=== PATIENT | male | born 1955 | race Caucasian/White ===

== ENCOUNTER 2020-05-28 10:55 | Outpatient (CLI) | payer BC, SELFPAY ==
--- NOTE | 2020-05-28 11:15 | CT_ITS ---
WS: [id number] CT scan of the neck. Additional two-dimensional coronal and sagittal reconstruction was performed. 05/28/2020 Clinical Data: LOCALIZED SWELLING MASS LUMP NECK Comparison: CT neck, 08/10/2010. DLP: 2332.[address] scans at [facility] use at least one of these dose optimization techniques: automat ed exposure control; mA and/or kV adjustment per patient size (includes targeted exams where dose is matched to clinical indication); or iterative reconstruction. Findings: There is an enlarged lymph node in the right parotid gland measuring 1.8 cm with a low density center . The left parotid gland is normal. The other salivary glands show no abnormalities. No lymphadenopat hy is present. There is no prevertebral soft tissue swelling. The larynx is symmetric. The thyroid gl and shows normal enhancement. The floor of the mouth and parapharyngeal spaces are normal. The oral c avity is unremarkable. The carotid arteries bifurcate normally. The vertebral arteries are normal. The cervical spine shows mild osteoarthritis from C5 through C7. The lung apices show no abnormalities. The portions of the in tracranial circulation which are seen demonstrate no abnormalities. No erosion of the skull or skull base is seen. CT/CT neck w con* [id number] Impression: 1. Enlarged lymph node in right parotid gland with low density center measuring 1.8 cm. 2. No other neck abnormalities are seen.
[2020-05-28] MEDS: iohexol 300 mg/mL 100 mL Btl IV (11:56)
[2020-06-01 15:42] LABS: Blood Urea Nitrogen 10 mg/dL (8-23); Glomerular Filtration Rate 97.6 mL/min (90-130)
== END 2020-05-28 10:56 | disposition home or self-care (01) ==
LOC: RADWPI 11:07
PROVIDERS: PCP Nurse Practitioner Family; Visit Provider Specialist
DX: R22.1 Localized swelling, mass and lump, neck (principal)
CPT/HCPCS: 70491; 82565; 84520; Q9967

== ENCOUNTER 2020-06-04 11:32 | Outpatient (CLI) | payer BC, SELFPAY ==
[2020-06-04 12:08] LABS: Basophils # 0.1 10^3/uL (0.0-0.1); Basophils % 0.8 %; Eosinophils # 0.2 10^3/uL (0.0-0.8); Hematocrit 45.4 % (42.0-52.0); Hemoglobin 15.2 g/dL (11.7-16.6); Lymphocytes # 2.4 10^3/uL (0.8-4.8); Lymphocytes % 31.4 %; Mean Corpuscular HGB Conc 33.5 g/dL (30.0-36.0); Mean Corpuscular Hemoglobin 31.9 pg (28.0-34.0); Mean Corpuscular Volume 95.4 fL (80-94); Mean Platelet Volume 9.5 fL (7.4-10.4); Monocytes # 0.6 10^3/uL (0.2-0.9); Monocytes % 8.2 %; Neutrophils # 4.34 10^3/uL (1.8-7.7); Neutrophils % 57.3 %; Nucleated Red Blood Cells % 0 %; Platelet Count 250 10^3/cmm (130-400); Red Blood Count 4.76 10^6/uL (4.1-5.3); Red Cell Distribution Width 13.3 % (12.1-15.1); White Blood Count 7.6 10^3/uL (4.0-10.0)
--- NOTE | 2020-06-04 12:31 | ECG_ITS ---
[facility] Test Date: 2020-06-04 Pat Name: Salvador Becker Department: Room: Gender: Male Laundry Washer: : 1955 Requested By: Azar Dudley Order Number: [id number] Soraida MD: KALIA TEJADA Measurements Intervals [place] Rate: 63 P: 57 [place]: 188 QRS: 72 QRSD: 100 T: 69 QT: 378 QTc: 387 Interpretive Statements SINUS RHYTHM Compared to ECG 07/25/2017 18:27:51 Sinus bradycardia no longer present Electronically Signed On 06-04-2020 20:18:40 CDT by KALIA TEJADA [id number]
[2020-06-04 12:32] LABS: Anion Gap 11.7 (5-19); Blood Urea Nitrogen 14 mg/dL (8-23); Calcium 9.2 mg/dL (8.5-10.5); Carbon Dioxide 27 mmol/L (22-29); Chloride 102 mmol/L (98-107); Glomerular Filtration Rate 113.9 mL/min (90-130); Glucose 87 mg/dL (65-115); Osmolality Calculated 282 mOsm/kg (285-295); Potassium 4.7 mmol/L (3.5-5.1); Sodium 136 mmol/L (136-145)
== END 2020-06-04 11:33 | disposition home or self-care (01) ==
LOC: RT 11:36
PROVIDERS: PCP Nurse Practitioner Family; Visit Provider Specialist
DX: R22.1 Localized swelling, mass and lump, neck (principal)
CPT/HCPCS: 36415; 80048; 85025; 93005

== ENCOUNTER → 2020-06-09 14:03 | Outpatient (BNVA) | payer BC, SELFPAY | PROVIDERS: PCP Nurse Practitioner Family; Visit Provider Specialist | DX: Z01.812 Encounter for preprocedural laboratory examination (principal); Z20.822 Contact with and (suspected) exposure to COVID-19 | CPT/HCPCS: 87635 ==

== ENCOUNTER 2020-06-15 15:09 | Observation (INO) | payer BC, SELFPAY ==
[2020-06-14 15:46] VITALS: BMI 30.1
[2020-06-15] VITALS (13 sets, daily range): BP systolic 106–171; BP diastolic 62–109; PULSE 72–79; RESP 13–18; TEMP 36.4–37.1; O2SAT 92–100
--- NOTE | 2020-06-15 06:28 | ANES.PREANE2 ---
Pre-Anesthetic Assessment Pre-Anesthetic Assessment: Height/Weight: Height 1.78 m Weight 95.254 kg Temp Pulse Resp BP Pulse Ox 98.3 F 72 18 126/75 97 06/15/20 06:10 06/15/20 06:10 06/15/20 06:10 06/15/20 06:10 06/15/20 06:10 Proposed Procedure: Operation Date: 06/15/20 07:00 Proposed Procedures p Right parotidectomy superficial or total, possible right neck dissection & possible L abd fat gaft harvest C07 R59.0 R22.1 [id number](Not Applicable) - Azar Stanley MD Was Beta Hannah taken within 24 hours: Yes Was Clonidine taken within 24 hours: N/A Last intake: Intake Last Liquid Date 06/14/20 Last Solid Date 06/14/20 Social: Social History: No alcohol and No tobacco Exam: Pre-Anes Outpt Exam: alert, oriented x 3, clear to auscultation bilaterally and regular rate & rhythm Airway: Submandibular: WNL Cervical ROM: WNL MP: 3 Dentition: Full Additional comments: h/o head and neck radiation CV/HEM: CV/HEM: CAD (Stent) and HTN GI: GI: GERD Metabolic: Metabolic: Morbid obesity Anesthetic Plan: ASA status: 3 Anesthesia: General Risk of > 500 ml blood loss (7ml/kg in children): No PFSH Anesthesia PFSH: Medical History (Updated 04/23/19 @ 18:05 by Robert Garber MD) CAD (coronary artery disease) GERD (gastroesophageal reflux disease) HTN (hypertension) Family History Sister Cancer Cervical CA Grandfather Cancer Mother Hypertension Social History Smoking and tobacco status: current every day smoker History of recent travel: No Data Anesthesia Cardiac Studies: No Data to Display
[2020-06-15] MEDS: sodium chloride 0.9% 1,000 ML 30 ML IV (06:31)
--- NOTE | 2020-06-15 06:42 | W.PM.OPSUD ---
Surgery/Procedure H&P Update DATE OF PROCEDURE: June 15, 2020 DATE H&P PERFORMED: 06/04/20 H&P UPDATE INFORMATION: I have reviewed H&P completed within last 30 days, I have examined patient prior to procedure and No changes to prior documentation PREOP DIAGNOSIS: Right parotid mass with suspicious FNA biopsy PRIMARY INDICATION FOR PROCEDURE: Right parotid mass with suspicious FNA biopsy PLANNED PROCEDURE: Operation Date: 06/15/20 07:00 Proposed Procedures p Right parotidectomy superficial or total, possible right neck dissection & possible L abd fat gaft harvest C07 R59.0 R22.1 [id number](Not Applicable) - Azar Satnley MD
[2020-06-15] MEDS: ceFAZolin 1,000 mg SDV 1000 MG IRRIGATION (08:14)
[2020-06-15] MEDS: triamcinolone 40 mg/mL SDV IM (08:16)
--- NOTE | 2020-06-15 08:26 | SUR.OPER ---
0805 pt family (Rossi) notified of surgery progress
[2020-06-15] MEDS: EPINEPHrine 1 mg/mL INJ XX (08:46)
[2020-06-15] MEDS: fluorescein 1 mg Strip XX (08:46)
--- NOTE | 2020-06-15 09:53 | SUR.OPER ---
0953 PT FAMILY (TAE) NOTIFIED OF SURGERY PROGRESS
[2020-06-15] MEDS: EPINEPHrine 1 mg/mL INJ 2 MG XX (10:47)
[2020-06-15] MEDS: thrombin 5,000 unit SDV 5000 UNIT XX (12:21)
--- NOTE | 2020-06-15 13:31 | P.OP_ITS ---
Operative Report Date of procedure: June 15, 2020 Pre-op Diagnosis: Right parotid mass with suspicious FNA biopsy Post-op diagnosis: other Post-op Diagnosis: Right tail of parotid mass Right cervical adenopathy - levels I,II,III Post-op Findings: Right tail of parotid mass Multiple right levels I, II, and III hard, pathologic appearing lymph nodes The following nerves were exposed, identified, and preserved intact on the right face and neck: CN VII, X, XI, XII, lingual nerve Procedure Done: Right near total parotidectomy Right Supraomohyoid neck dissection Implants: None Specimens removed/disposition: Right parotid/right parotid mass Right Neck contents: leves I, IIa, IIb, and III Pathology: See above Surgeon: Azar Stanley Circuit Breaker Supervisor: Randal Mccurdy Circuit Breaker Supervisor: Franca Denney Anesthesia: General Estimated blood loss (mL): 50 IV fluids (mL): 1,700 Urine output (mL): 450 Complications: None Findings: Right tail of parotid mass Pathologic adenopathy of the right neck, levels I, II, and III The following nerves were identified and preserved: CN VII, CN X, CN XI, CN XII, and the right lingual nerve The right greater auricular nerve was sacrificed Condition: stable Disposition: floor Brief History: 64 yo wm with a h/o a right tail of parotid mass and right cervical adenopathy with a suspicious FNA biopsy who desires surgical therapy. Procedure: The patient was identified in the preoperative holding area and was taken to the operating room where he was placed on the operating table in the supine position. Anesthesia was obtained with general endotracheal anesthesia and the table was then turned 180 degrees. The Nirvana nerve monitoring system was placed in the patient's right face and the patient was then prepped and draped in the usual sterile fashion. An extended and modified Adrian incision was marked on the patient's right face and the incision was injected with local anesthesia. Patient was then observed for 10 minutes. The incision was then made with a 15 blade and was carried down through the subcutaneous tissues with sharp scissors and Metzenbaum scissors. An anteriorly based flap was developed over the right parotid and into the right neck exposing the right parotid to the operating surgeon. At this point the dissection proceeded along a broad front along the right sternocleidomastoid muscle. The dissection was developed medially to the anterior border of the right sternocleidomastoid muscle and immediately significant cervical adenopathy was encountered. The dissection then proceeded into the immediate preauricular area and the dissection proceeded between the tragal cartilage and the posterior border of the parotid gland. At this point a dissection proceeded at the right neck and a supraomohyoid neck dissection was performed by dissecting posteriorly along the anterior border the sternocleidomastoid muscle until the floor of the neck was identified. The dissection then turned anteriorly along the cervical nerve rootlets and was brought up over the internal jugular vein on the right. The right internal jugular vein and carotid artery were then skeletonized up into the upper portion of the right neck above the omohyoid muscle. At this point, the spinal accessory nerve was identified and dissected free from the surrounding tissues and levels 2A and 2B were harvested along with a neck specimen. The right cervical adenopathy was dissected free from the surrounding tissues and the internal jugular vein and right carotid were found to be immediately underlying the adenopathy. The vagus nerve was identified and preserved in the carotid sheath. The right cervical adenopathy was hard and there was significant scarification in the right neck. At this point the dissection proceeded deep into the immediate preauricular tissues until the facial nerve was identified both visually and electrically at its exit point from the stylomastoid foramen in the medial right tympanomastoid suture. The dissection then turned forward and the dissection proceeded to the pes anserinus. The branches of the facial nerve were then dissected free and preserved using the Nirvana nerve monitoring hemostat and the Jefferson dissector. As the dissection proceeded the superficial portion of the parotid was removed as was the tail of parotid. In the tail of parotid a mass was encountered which was excised with wide cuff of normal- appearing tissue around it. The branches of the facial nerve were left overlying a small layer of of parotid tissue overlying the masseter muscle but the vast majority the parotid gland was removed. At this point the marginal mandibular nerve was followed out over the submandibular gland on the right and was retracted to safety superiorly. At this point the hypoglossal nerve was identified and preserved and was dissected free from the digastric muscle. The submandibular triangle was then addressed and the submandibular gland was excised with a combination of blunt dissection and bipolar cautery. The hypoglossal nerve, marginal mandibular nerve, and lingual nerves were identified and preserved in place in the submandibular triangle on the right. At this point the wound was irrigated and was inspected for hemostasis which was found to be adequate. The area of the right neckw was dissected free from the right cervical adenopathy between the lateral aspect of the internal jugular vein and the sternocleidomastoid muscle to the floor of the neck as well as the rest of the neck were inspected and found to have no significant bleeding. At this point the wounds were packed with Gelfoam soaked in thrombin and a drain was placed in the patient's right neck. The wound was then closed in layers with interrupted 4-0 Monocryl sutures in the subcu and 5-0 fast-absorbing gut on the skin. At this point the wounds were cleaned and were covered with triple antibiotic ointment and the procedure was terminated. Controlled of the patient was returned to anesthesia where he underwent an uneventful reversal of anesthesia and extubation and was taken to the recovery room in stable condition. There were no operative or anesthetic complications.
--- NOTE | 2020-06-15 13:34 | SUR.PHASEI ---
PT AWAKE ALERT DENIES PAIN AND NAUSEA JOSE RAMON TO RT NECK INCISION SITE COMPRESSED WITH SMALL AMT SANGUINEOUS DRAINAGE NOTED , VSS PT NOW ON RA TRIAL FOWLER TO DD YELLOW URINE TO TUBING AND BAG, STATLOCK TO LT THIGH.
--- NOTE | 2020-06-15 13:42 | SUR.PHASEI ---
PT AWAKES EASILY SATS 99% ON RA PT TAKING OCC ICE CHIPS INCISION TO RT NECK REMAINS WITH OINTMENT ONLY NO BLEEDING NOTED.
--- NOTE | 2020-06-15 14:20 | PC.NURSE ---
1420: Patient to floor with JEANETTE Mckeon from PACU. Bedside report performed. Patient is resting in bed with no c/o pain at this time. Admission assessment and education performed. Patient tolerated procedure well.
--- NOTE | 2020-06-15 14:34 | SUR.PHASEI ---
1355 PTTO FLOOR PER CART AWAKE ALERT PT UP AND WALKED TO BED , HANDOFF AT BEDSIDE TO FLOOR NURSE ANTHONY.
[2020-06-15] MEDS: lactated ringers 1,000 ML 125 ML IV (15:39)
--- NOTE | 2020-06-15 16:14 | PC.NURSE ---
1545: While initiating LR and Cefazolin IV administration, this RN called and informed patient's spouse of patient's location on Med/Surg and provided her the information on current visiting hours [phone] 1 person at a time throughout the day at [facility]. She verbalizes understanding and states she will be here shortly. Patient denies the presence of pain at this time and is resting comfortably.
--- NOTE | 2020-06-15 17:16 | ANE.PACU2 ---
Inpatient post-anesthesia follow up: Airway intact: Yes Vital signs: Temperature 98.7 F Pulse Rate 73 Respiratory Rate 17 Blood Pressure 128/81 Pulse Oximetry 94 Oxygen Delivery Me thod Room Air Oxygen Flow Rate 8 Fraction of Inspir ed Oxygen Hydration adequate: Yes Nausea and vomiting: No Pain level: 2 Mental status: Baseline
--- NOTE | 2020-06-15 17:36 | P.PN_ITS ---
Subjective Subjective: Interval history: 64 yo wm who is nigh of surgery s/p right parotidectomy with right SOHND for right parotid and right neck masses. The patient reports that he is doing well. He has no c/o. Vitals/I&O/Wt Last Vital Signs Temp 98.7 F 06/15/20 15:09 Pulse 73 06/15/20 15:57 Resp 17 06/15/20 15:57 BP 128/81 06/15/20 15:09 Pulse Ox 94 06/15/20 15:57 06/15/20 06/15/20 06/15/20 06:59 14:59 22:59 Intake Total 700 / 700 50 / 750 Output Total 650 / 650 Balance 50 / 50 50 / 100 Weight last 48 hrs Weight 95.254 kg Physical Exam Const: COMMON NORMALS: no acute distress, average body habitus and patient oriented x3 HENMT: COMMON NORMALS: normocephalic, atraumatic, external ears normal and Normal external nose present HEAD & SCALP: normocephalic and atraumatic FACE & SINUS: face symmetric and other (The right facial/neck incision is clean, intact, and without erythema. ) NOSE: Normal external nose present EXTERNAL EAR: Yes external ears normal Eye: COMMON NORMALS: EOMs intact bilaterally and conjunctivae normal CONJUNCTIVA: Yes conjunctivae normal Neck/C-Spine: COMMON NORMALS: no lymphadenopathy and supple OTHER: Right neck incision appears normal without swelling. JOSE RAMON drain is in place. Lymph: LYMPHATIC: no lymphadenopathy noted Resp: COMMON NORMALS: normal respiratory effort and clear to auscultation bilaterally AUSCULTATION: clear to auscultation bilaterally Cardio: COMMON NORMALS: regular rhythm and No murmurs present (Cardio) RHYTHM: regular rhythm GI: COMMON NORMALS: Normal to inspection, nondistended, normoactive bowel sounds present and Soft to palpation PALPATION: Yes Soft to palpation Extremity: COMMON NORMALS: normal to inspection Neuro: COMMON NORMALS: patient oriented x3 and CN's II-XII intact bilaterally CRANIAL NERVES: Yes other (The following director supply chain are normal: VII, X, XI, and XII are normal.) Psych: COMMON NORMALS: mental status grossly normal Urinary Catheter Management^: Velasquez: Cath Placed During This Visit: yes Urinary Catheter Date of Insertion: 06/15/20 Urinary Catheter Time of Insertion: 07:20 A&P Additional A&P Information Impression: 64 yo wm who is night of surgery s/p right parotidectomy with right neck dissection who is doing well. Plan: - Observation as an inpatient - Regular diet - Continue JOSE RAMON closed suction drainage - D/C Velasquez - Resume anticoagulants tomorrow; continue SCD's tonight - Anticipate d/c tomorrow afternoon Attestations Medical Necessity Statement*: The patient requires overnight hospitalization for observation of his airway Coding Level of Care Code Acute Retail Sales Representative for Mariela Nolan
--- NOTE | 2020-06-15 18:59 | PC.NURSE ---
1850: This RN removed the roman catheter per protocol and emptied 550 mL of clear, yellow urine. Patient tolerated procedure well with no complications. I provided education on s/s of complications and instructed him to inform nursing if he had not voided by 2229. He verbalizes understanding. He requested jello and coffee per his advancing diet as tolerated order. I provided him jello, coffee, and water and instructed him to call if he has any increased nausea/vomiting or any increased pain. He denies pain at this time.
[2020-06-15] MEDS: ticagrelor 90 mg Tablet PO (21:45)
[2020-06-16] VITALS (7 sets, daily range): BP systolic 92–103; BP diastolic 53–60; PULSE 67–78; RESP 16–18; TEMP 36.6–36.9; O2SAT 94–96
[2020-06-16] MEDS: lactated ringers 1,000 ML 125 ML IV ×2 (00:26→08:35)
--- NOTE | 2020-06-16 05:20 | PC.NURSE ---
DIET Patient has tolerated advancement of diet well. Patient went from ice chips and clear liquids to chicken noodle soup and crackers with no complaints of nausea or vomiting.
--- NOTE | 2020-06-16 05:25 | PM.PN ---
Subjective Subjective: Interval history: 64 yo wm who is POD #1 s/p right parotidectomy with right Supraomohyoid neck dissection. The patient reports that he is doing well. He was able to eat without difficulty last night and reports minimal pain. The patient is o/w without c/o. Vitals/I&O/Wt Last Vital Signs Temp 98.4 F 06/16/20 01:52 Pulse 78 06/16/20 01:52 Resp 16 06/16/20 01:52 BP 95/58 06/16/20 01:52 Pulse Ox 94 06/16/20 01:52 06/15/20 06/15/20 06/16/20 14:59 22:59 06:59 Intake Total 750 / 750 1530 / 2280 1050 / 3330 Output Total 650 / 650 1550 / 2200 600 / 2800 Balance 100 / 100 -20 / 80 450 / 530 Weight last 48 hrs Weight 95.254 kg Physical Exam HENMT: COMMON NORMALS: normocephalic, atraumatic and Normal external nose present HEAD & SCALP: normocephalic and atraumatic FACE & SINUS: normal facial exam NOSE: Normal external nose present Eye: COMMON NORMALS: EOMs intact bilaterally, conjunctivae normal and no scleral icterus CONJUNCTIVA: Yes conjunctivae normal Neck/C-Spine: COMMON NORMALS: no lymphadenopathy and Thyroid normal GENERAL: Yes trachea midline and Yes other (The right facial/neck incision is without erythema or swelling.) THYROID: Thyroid normal Lymph: LYMPHATIC: no lymphadenopathy noted Chest: COMMONS NORMALS: normal palpation of entire chest wall Resp: COMMON NORMALS: normal respiratory effort, No use of accessory muscles and clear to auscultation bilaterally AUSCULTATION: clear to auscultation bilaterally Cardio: COMMON NORMALS: regular rate, regular rhythm and No murmurs present (Cardio) RATE: regular rate RHYTHM: regular rhythm GI: COMMON NORMALS: Normal to inspection, nondistended, normoactive bowel sounds present and Soft to palpation PALPATION: Yes Soft to palpation Extremity: COMMON NORMALS: normal to inspection Neuro: COMMON NORMALS: CN's II-XII intact bilaterally Psych: COMMON NORMALS: mental status grossly normal Urinary Catheter Management^: Velasquez: Cath Placed During This Visit: yes, but has since been removed by the nurse Reason for Continuing Indwelling Catheter: Decision to DC Catheter Urinary Catheter Date of Insertion: 06/15/20 Urinary Catheter Time of Insertion: 07:20 Date Urinary Catheter Removed: 06/15/20 Time Urinary Catheter Discontinued: 18:45 A&P Additional A&P Information Impression: 64 yo wm who is POD #1 s/p Right parotidectomy with supraomohyoid neck dissection for right parotid and right neck masses suspicious for malignancy who is doing well Plan: - Regular diet - Restart Brilinta and ASA - Continue JOSE RAMON drainage - Apply triple antibiotic ointment to the right facial/neck wounds TID - Anticipate d/c this afternoon - I will arrange follow on care as an outpatient Attestations Medical Necessity Statement*: The patient required overnight observation of his airway. Coding Level of Care Code Acute Industrial Relations Worker for Mariela Nolan
--- NOTE | 2020-06-16 05:30 | PC.NURSE ---
pt states he has 'dull headache' pt asked if he wanted something for headache. pt states 'he will holler if he needs something for it'
[2020-06-16] MEDS: acetaminophen 500 mg Tablet PO (05:51)
[2020-06-16] MEDS: atorvastatin 40 mg Tablet 80 MG PO (08:35)
[2020-06-16] MEDS: lisinopril 5 mg Tablet PO (08:35)
[2020-06-16] MEDS: aspirin 81 mg EC Tablet PO (08:35)
[2020-06-16] MEDS: pantoprazole DR 40 mg Tablet PO (08:35)
[2020-06-16] MEDS: metoprolol succinate ER (24 HR) 25 mg Tablet PO (08:36)
--- NOTE | 2020-06-16 10:28 | PC.CHAP ---
Pastoral Care Encounter/Spiritual Assessment Type of Contact [] Declined spot facer visit [] Patient/Family/Request visit [] Outpatient visit [] Follow-up visit [] Physician referral [] Code/Alert [x] Routine visit [] Staff referral [] Actively dying [] Patient sleeping [] Family support [] [] Out of room [] Palliative care [] [] Receiving care in room [] Pre-surgical visit [] Trauma [] Long length of stay [] ICU visit [] Other: Relational/Emotional Strength [] Patient feels connected with others/family/visitors/staff [] Distress [] Loneliness/isolation [] Abandonment Spirituality of Patient [x] Person of [place] [x] Attends Buddhist of their [place] [x] Believes in Prayer [] Reads Bible or Methodist materials [] There are Spiritual issues to be addressed Glass Loading Equipment Tender Interventions [x] Prayer [x] Active listening [x] Non-anxious presence [x] Spiritual/emotional support [] Crisis/trauma care [] Spiritual counseling [] Bereavement support [] Provided bereavement packet [] Provided Bible/devotional materials [] Provided toy/stuffed animal, coloring book to patient or family member [] Provided Communion [] Anointing/[place] [] Salvation [x] Completed spiritual assessment [] Other: Impact on Illness or Injury [] Angry [] Fearful [] Anxious [] Often cries [] Exhaustion [] Unable to work [] Unable to attend [facility]aritan [] Unable to walk/stand [] Unable to read [] Unable to drive [] Unable to eat/drink [] Unable to sleep [] Unable to be with family [] Patient intubated [] Other: Summary Time spent with patient 15 min
--- NOTE | 2020-06-16 17:10 | P.DS_ITS ---
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 The patient desires surgical excisional biopsy/biopsies. Hospital Course Hospital Course The patient underwent right parotidectomy and right supraomohyoid neck dissection on 06/15/20 as an excisional biopsy of the above noted masses. Please see the patient's OP report for details of these procedures. The patient was transferred to the [facility] for post operative evaluation. The patient was restarted on his Brilinta the night of surgery and aspirin on POD #1. The gary ent did well, tolerated po well, and had minimal pain overnight and on POD #1. On the afternoon of his first post operative day, the patient was tolerating po well and had minimal pain and requested discharge. The patient was discharged in stable condition of the afternoon of POD #1. Physical Exam Const: COMMON NORMALS: patient oriented x3 HENMT: COMMON NORMALS: normocephalic, atraumatic, external ears normal and Normal external nose present HEAD & SCALP: normocephalic and atraumatic FACE & SINUS: normal facial exam and face symmetric NOSE: Normal external nose present EXTERNAL EAR: Yes external ears normal THROAT: posterior oropharynx normal Eye: COMMON NORMALS: EOMs intact bilaterally and conjunctivae normal GENERAL EYE: appearance normal, both eyes and all related structures CONJUNCTIVA: Yes conjunctivae normal Neck/C-Spine: COMMON NORMALS: no lymphadenopathy and supple GENERAL: Yes trachea midline and Yes other (The right neck mass is clean and without swelling.) Lymph: LYMPHATIC: no lymphadenopathy noted Chest: COMMONS NORMALS: normal inspection of the chest Resp: COMMON NORMALS: normal respiratory effort, No use of accessory muscles and clear to auscultation bilaterally AUSCULTATION: clear to auscultation bilaterally Cardio: COMMON NORMALS: regular rate, regular rhythm and No murmurs present (Cardio) RATE: regular rate RHYTHM: regular rhythm GI: COMMON NORMALS: Normal to inspection, nondistended, normoactive bowel sounds present and Soft to palpation PALPATION: Yes Soft to palpation Extremity: COMMON NORMALS: normal to inspection Neuro: COMMON NORMALS: patient oriented x3 and CN's II-XII intact bilaterally Psych: COMMON NORMALS: mental status grossly normal Urinary Catheter Management^: Velasquez: Cath Placed During This Visit: yes, but has since been removed by the nurse Reason for Continuing Indwelling Catheter: Decision to DC Catheter Urinary Catheter Date of Insertion: 06/15/20 Urinary Catheter Time of Insertion: 07:20 Date Urinary Catheter Removed: 06/15/20 Time Urinary Catheter Discontinued: 18:45 Discharge Data Data Completed and Pending: Pending at discharge Category Date Time Status Miscellaneous Sandra t Routine Lab 06/15/20 09:55 Received Pathology: Surgic al [PTH] Routine Pth 06/15/20 13:27 Received Labs from last 24 hours 06/15/20 09:55 Misc Test Referenc e Pending Vitals: Last Vital Signs Temp 98.2 F 06/16/20 15:23 Pulse 67 06/16/20 15:23 Resp 18 06/16/20 15:23 BP 92/53 06/16/20 15:23 Pulse Ox 96 06/16/20 15:23 Discharge Plan Discharge Patient Disposition: Home Condition: Stable Prescriptions: New hydrocodone-acetaminophen 5-325 mg tablet 1 tab PO Q6H PRN (Reason: pain) Qty: 28 RF: 0 Continued aspirin [Adult Low Dose Aspirin] 81 mg tablet,delayed release (DR/EC) 81 mg PO DAILY RF: 0 pantoprazole 40 mg tablet,delayed release (DR/EC) 40 mg PO DAILY RF: 0 nitroglycerin [Nitrostat] 0.4 mg tablet, sublingual 0.4 mg SUBLINGUAL Q5M PRN (Reason: chest pain) 30 Days Qty: 25 RF: 6 atorvastatin 80 mg tablet 80 mg PO DAILY Qty: 90 RF: 3 lisinopril 5 mg tablet 5 mg PO DAILY Qty: 90 RF: 3 metoprolol succinate 25 mg tablet extended release 24 hr 25 mg PO DAILY Qty: 90 RF: 3 Brilinta 90 mg tablet 90 mg PO BID RF: 0 Discharge Orders: Discharge Order (Routine); Ordered 06/16/20 Ordered By: Azar Stanley Discharge Diet: Advance as tolerated Discharge Activity: Increase activity as tolerated Patient Instructions: Opioid Safety Activity Restrictions/Additional Instructions: 1) The patient may resume showers tomorrow 2) Apply triple antibiotic ointment to the right neck wound TID 3) [place] (5/325) tabs: take 1-2 tabs po Q6 hours prn pain, #28, NR 4) Empty and record JOSE RAMON drain output Q6 hours 5) Resume all preop medications 6) F/U in Dr. Stanley's office in one week 7) Contact Dr. Stanley for any problems Discharge Attestations Time Spent in Discharge Care*: greater than 30 min Quality Metrics Clinical Quality Measures During this hospital stay, did patient experience: None Coding Level of Care Code Acute Chg FW DC note
--- NOTE | 2020-06-16 17:10 | PM.PN ---
Vitals/I&O/Wt Last Vital Signs Temp 98.2 F 06/16/20 15:23 Pulse 67 06/16/20 15:23 Resp 18 06/16/20 15:23 BP 92/53 06/16/20 15:23 Pulse Ox 96 06/16/20 15:23 06/16/20 06/16/20 06/16/20 06:59 14:59 22:59 Intake Total 2610 / 4890 1240 / 1240 Output Total 1185 / 3385 Balance 1425 / 1505 1225 / 1225 - 1210 Physical Exam Urinary Catheter Management^: Velasquez: Cath Placed During This Visit: yes, but has since been removed by the nurse Reason for Continuing Indwelling Catheter: Decision to DC Catheter Urinary Catheter Date of Insertion: 06/15/20 Urinary Catheter Time of Insertion: 07:20 Date Urinary Catheter Removed: 06/15/20 Time Urinary Catheter Discontinued: 18:45 Coding Level of Care Code Acute Nursing Home Admissions Director for Mariela Nolan
[2020-06-17 14:31] LABS: Miscellaneous Test See Scanned Lab Rpt
--- NOTE | 2020-06-18 18:06 | PC.RESP ---
Smoking Cessation information sent to patient.
== END 2020-06-16 17:48 | disposition home or self-care (01) ==
LOC: MEDSURG 06-16 10:44
PROVIDERS: Admitting Provider Specialist; PCP Nurse Practitioner Family; Visit Provider Specialist
PROC: (CPT 42410; principal; 2020-06-15 07:00)
PROC: (CPT 38720; 2020-06-15 07:00)
DX: D11.0 Benign neoplasm of parotid gland (principal); I25.10 Atherosclerotic heart disease of native coronary artery without angina pectoris; Z95.5 Presence of coronary angioplasty implant and graft; I10 Essential (primary) hypertension; K21.9 Gastro-esophageal reflux disease without esophagitis; E66.01 Morbid (severe) obesity due to excess calories; Z68.30 Body mass index [BMI] 30.0-30.9, adult; F17.210 Nicotine dependence, cigarettes, uncomplicated
CPT/HCPCS: 38720; 42410; 12345; 88184; 88185; 88305; 88307; 94664; G0378; J0171; J0330; J0690; J1100; J2405; J2704; J3010; J3301; J3490; J7030

== ENCOUNTER 2020-09-13 12:43 | Outpatient (CLI) | payer OTHER, SELFPAY ==
--- NOTE | 2020-09-13 17:19 | N.ONRAD NP_ITS ---
Radiation Oncology New Patient Visit Patient: Salvador Becker MR#: [id number] : 1955> Age: 65> Sex: Male> Dictated by: Dr. Derrick Kay Date of Service: 09/13/2020 Referring Physician(s) : Thomas Stanley M.D. 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 2010, 6600 cGy delivered in 33 fractions to the larynx. Parallel opposed lateral aparicio were utilized, treating with 6 MV photons to the 100% isodose line. The field size was 6 cm x 6 cm. Chief Complaint / History of Present Illness: Mr. 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 He underwent radical radiation therapy as noted above. He had a good result, not experiencing recurrence and maintaining an excellent voice. He continued annual follow-ups with Dr. Stanley. On a visit early this spring he was noted to have a right submandibular mass. A fine-needle aspiration was performed 05/17/2020. 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 A near complete right parotidectomy and neck dissection were performed 06/15/2020. 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 However a corrected path report was rendered a few days later. The parotid gland contained a Warthin's tumor but no malignancy was detected in the parotid gland and no evidence of malignant transformation was detected in the Warthin's tumor. The path report indicated 4 of 4 lymph nodes containing metastatic large cell carcinoma, extracapsular extension, greatest dimension 2.7 cm in lymph nodes from level 2B. Another specimen from level 2 in the right neck contained metastatic undifferentiated large cell carcinoma in 3 out of 3 lymph nodes with extracapsular extension identified and the greatest dimension being 1.2 cm. Lymph nodes from level 3 of the right neck revealed metastatic undifferentiated large cell carcinoma in 3 of 6 lymph nodes with the greatest dimension being 2.4 cm. The right parotid gland contained a Warthin's tumor but no malignancy was seen. 5 lymph nodes taken from the parotid gland were negative for malignancy. 5 lymph nodes removed from level 2A were negative for malignancy. Soft tissue from the right neck level 1 contained metastatic undifferentiated large cell carcinoma in 1 of 1 lymph node, greatest dimension 1.2 cm with no extracapsular extension identified. Mr. Mckeon was referred to head neck surgery at [facility]. Slides from the prior surgery were reviewed. Findings were similar, but the report did not describe multiple lymph nodes being involved at the various neck levels. In each area where malignancy was found, the report indicated 1 of 1 node involved. There was agreement on extranodal extension. Each metastasis was described as much larger with a 5 cm metastasis described from level 2B, 3.9 cm metastasis described from the right neck level 2, 3 cm metastasis described at right neck level 3 and a 1.9 cm metastasis described from level 1 in the right neck. The [facility] review also described 8 negative nodes from the parotidectomy rather than 5. A postoperative PET was performed at [facility]. 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 Additional surgery was performed at [facility] to further dissect the right submandibular area. Metastatic poorly differentiated carcinoma was found in 3 of 4 lymph nodes obtained. A right cheek lesion was excised and contained sebaceous hyperplasia. Mr. Mckeon was seen by Dr. Yanes in the radiation oncology department at [facility]. He recommended additional radiation to the right neck, suggesting 25-33 treatments with exclusion of the previously treated volume. Mr. Mckeon prefers to have treatments closer to home. He is referred for evaluation. He has not seen a dentist. Current Medications: I do not have a medication list from today. His medications 08/23/2020 were 81 mg aspirin, Brilinta, lisinopril, metoprolol, and pantoprazole.. Allergies: No Known Allergies Medical History: - Myocardial infarction in 02/2018. No history of collagen vascular disease. No previous radiation therapy. Surgical History: Appendectomy, colonoscopy in 2017 and coronarystent in 2019. Family History: Father is alive. Mother is at age 82 having experienced heart disease. Maternal Grandfather is having experienced Head & Neck (Misc) Cancer. Social History: Last screened on 09/13/2020 - Current every day smoker 1.5 packs/day for 40 years (60 pack years). Last screened on 09/08/2020 - Never drank. Patient indicated use of the following products: cigarettes. Current Complaints / Review of Systems: . Vital Signs: Performed on 09/13/2020 1:32 PM BMI - 28.41 kg/m2 (high), Height - 70.00 in, Weight - 198.0 lbs, Temperature - 98.32 f, Pulse - 63, Respiration - 16, O2 Sat - 96 %, Pain - 0 and BP - 108/ 69 mm(hg). Physical Exam: Alert, oriented, no distress. No lesions seen in the facial area. No masses detected in the area of either parotid gland. The left neck is free of masses and lymphadenopathy. On the right postsurgical changes are evident. There is mild, brawny edema. On palpation there is smooth induration throughout the area that. recently underwent surgery. No masses or lymphadenopathy detected. No lymph nodes palpable elsewhere in the neck. Oral cavity examination reveals no lesions of the mucosa. He has had multiple extractions of teeth. All of his remaining teeth appear to be in very poor repair. Lungs clear to auscultation with no rales wheezes or rhonchi. Heart rhythm normal. Heart sounds were distant. No murmur gallop or rub noted. Abdomen no distention. Nontender. No organomegaly or mass or tenderness. Musculoskeletal exam revealed no bone tenderness. Gait is normal. Performance Status: 0 - Fully active, able to carry on all predisease activities without restrictions. (ECOG) Pathology: See HPI. Lab: Imaging: See HPI Impression: Poorly differentiated carcinoma involving multiple lymph nodes of the right neck. Although salivary gland involvement was not documented pathologically, the cancer is consistent with salivary gland origin. With the involvement of multiple lymph nodes and extranodal extension, Mr. Mckeon is at high risk for recurrence in the right neck. I discussed that with him, and he was already aware of that. We also discussed that his prior neck radiation puts him at a significantly higher risk of complications. I discussed the acute side effects of treatment, which likely will be tolerated well. However, I discussed that he is at risk for a carotid blowout from retreatment to the area. We have very good dosimetry from his prior treatment and the currently recommended treatment can be planned around that. However, I explained that if we protect the carotid completely, that he will be at a higher risk for recurrence in the neck. I explained that with tedious planning the risk of carotid blowout can be reduced but not eliminated. Neither the patient nor his seemed particularly alarmed at this discussion. Mr. Mckeon is motivated to take postoperative radiation and he prefers that it be done in [place]. I have spoken to Dr. Norman about this case and he is agreeable to proceeding with treatment as long as the patient is agreeable to the elevated risk. Mr. Becker???s teeth are in very poor repair. He is aware of that. He will receive 50-66 Gy to the right neck if Dr. Yanes???s recommendation is followed. Although the left neck will not be treated, he will still have significant xerostomia. I explained the potential disastrous consequences of xerostomia in the setting of poor dentition. He understands that to leave his teeth in would put him at significant risk of osteoradionecrosis. He is agreeable to a full mouth extraction and wishes to proceed. He has already contacted [facility] in [place] and prefers to utilize their services. I called today and spoke with Bharti in scheduling. She asked that I fax this consultation to her and then she will call Mr. Mckeon to get him in for evaluation. Plan: Proceed with a full mouth extraction followed by simulation and treatment planning when appropriate. Signed by: 09/13/2020 5:17:36 PM <<Signature on File>> Time spent with patient: CPT Code: CPT Code:
== END 2020-09-13 12:44 | disposition home or self-care (01) ==
LOC: ONCMED 12:49
PROVIDERS: PCP Nurse Practitioner Family; Visit Provider Specialist
DX: C32.0 Malignant neoplasm of glottis (principal); C77.8 Secondary and unspecified malignant neoplasm of lymph nodes of multiple regions; D11.0 Benign neoplasm of parotid gland; K11.7 Disturbances of salivary secretion; Z79.899 Other long term (current) drug therapy
CPT/HCPCS: 99205

== ENCOUNTER 2020-10-12 10:00 | Outpatient (CLI) | payer OTHER, SELFPAY ==
[2020-10-12 10:29] LABS: Basophils # 0.1 10^3/uL (0.0-0.1); Basophils % 0.7 %; Eosinophils # 0.2 10^3/uL (0.0-0.8); Eosinophils % 2.2 %; Hematocrit 45.3 % (42.0-52.0); Hemoglobin 15.1 g/dL (11.7-16.6); Lymphocytes # 1.8 10^3/uL (0.8-4.8); Lymphocytes % 26.4 %; Mean Corpuscular HGB Conc 33.3 g/dL (30.0-36.0); Mean Corpuscular Hemoglobin 31.9 pg (28.0-34.0); Mean Corpuscular Volume 95.8 fl (80-94); Mean Platelet Volume 9.5 fL (7.4-10.4); Monocytes # 0.7 10^3/uL (0.2-0.9); Monocytes % 10.3 %; Neutrophils # 4.07 10^3/uL (1.8-7.7); Neutrophils % 60.3 %; Nucleated Red Blood Cells % 0 %; Platelet Count 280 10^3/cmm (130-400); Red Blood Count 4.73 10^6/uL (4.1-5.3); Red Cell Distribution Width 13.7 % (12.1-15.1); White Blood Count 6.8 10^3/uL (4.0-10.0)
[2020-10-12 10:55] LABS: Alanine Aminotransferase 15 U/L (0-41); Albumin Level 4.1 g/dL (3.5-5.2); Alkaline Phosphatase 120 IU/L (40-130); Anion Gap 12.4 (5-19); Aspartate Amino Transferase 14 U/L (0-40); Blood Urea Nitrogen 8 mg/dL (8-23); Carbon Dioxide 26 mmol/L (22-29); Chloride 103 mmol/L (98-107); Globulin 2.6 g/dL (1.3-4.6); Glomerular Filtration Rate 135.6 mL/min (90-130); Glucose 95 mg/dL (65-115); Osmolality Calculated 282 mOsm/kg (285-295); Potassium 4.4 mmol/L (3.5-5.1); Sodium 137 mmol/L (136-145); Total Bilirubin 0.4 mg/dL (0.15-1.2); Total Protein 6.7 g/dL (6.6-8.7)
== END 2020-10-12 10:01 | disposition home or self-care (01) ==
LOC: ONCMED 10:03
PROVIDERS: PCP Nurse Practitioner Family; Visit Provider Radiology Radiation Oncology
DX: C07 Malignant neoplasm of parotid gland (principal)
CPT/HCPCS: 36415; 80053; 85025

== ENCOUNTER 2020-11-06 17:32 | Emergency (ER) | payer OTHER, SELFPAY ==
[2020-11-06] VITALS (10 sets, daily range): BP systolic 76–118; BP diastolic 52–77; PULSE 70–109; RESP 15–20; TEMP 36.6–38.7; O2SAT 91–103; BMI 27.2
--- NOTE | 2020-11-06 18:26 | XRR_ITS ---
PROCEDURE INFORMATION: Exam: XR Chest Exam date and time: 11/06/2020 6:26 PM Age: 65 years old Clinical indication: Dyspnea; Additional info: SOB, chest pain TECHNIQUE: Imaging protocol: XR of the chest. Views: 1 view. COMPARISON: CT chest wo con [id number] 11/29/2018 2:05 PM FINDINGS: The lungs are clear of infiltrate. There are no pleural effusions or pneumothorax. The heart size and pulmonary vascularity are normal. There is some scarring within the lung bases. XR/XR chest 1V portable [id number] IMPRESSION: No active disease.
--- NOTE | 2020-11-06 18:27 | ECG_ITS ---
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 Measurements Intervals [place] Rate: 103 P: 72 IN: 159 QRS: 93 QRSD: 90 T: 73 QT: 307 QTc: 404 Interpretive Statements SINUS TACHYCARDIA BORDERLINE RIGHT AXIS DEVIATION [QRS AXIS > 90] SEPTAL MYOCARDIAL INFARCTION , OF INDETERMINATE AGE [40+ ms Q WAVE IN V1/V2] Compared to ECG 06/04/2020 11:50:48 Myocardial infarct finding now present Sinus rhythm no longer present Electronically Signed On 11-08-2020 19:15:20 CDT by Mendy Byrd M.D. [id number]
--- NOTE | 2020-11-06 18:36 | ED_ITS ---
HPI - COVID General: Chief Complaint: COVID symptoms Stated Complaint: COVID SX: COUGH,SOB,MUSCLE ACHES,N/V,CHILLS Time Seen by Provider: 11/06/20 17:59 Triage information: Has fever, cough or shortness of breath . No known COVID + exposure last 14 days History of Present Illness: HPI Narrative: Mr. Mckeon is a 65-year-old gentleman with significant past medical history of hypertension, hyperlipidemia, and CAD with history of 1 stent on Brilinta who presents to the emergency department due to cough, chest pressure, and generalized malaise. Symptom onset was gradual approximately 5 days ago. He endorses generalized malaise, muscle aches, and repeated intermittent productive cough which has led to moderate intensity generalized chest pressure. Overall the course of symptoms has been worsening. The intensity is moderate to severe. He has had mild associated nausea, decreased p.o. intake, and a few episodes of nonbloody diarrhea. He has tried [id number] medications without significant relief. He does have sick contacts. COVID Results: SARS-CoV-2 Antigen (Rapid) Negative (Negative) 11/06/20 18:52 11/06/20 SARS-CoV-2 RNA (RT-PCR) Pending 11/06/20 19:54 11/06/20 Nasal/Oral Coronavirus 2019 PCR Not detected 06/09/20 14:03 06/09/20 Review of Systems General: Reports: 10 or more systems reviewed and unremarkable except in HPI and below Narrative: CONSTITUTIONAL: Positive for fever, fatigue, weakness EYES - denies pain, denies loss of vision EARS - denies ear issues. NOSE - denies congestion or rhinorrhea. THROAT - denies sore throat or difficulty swallowing. CARDIOVASCULAR - denies chest pain and palpitations RESPIRATORY -positive for shortness of breath and cough GASTROINTESTINAL - denies abdominal pain, positive nausea vomiting, positive for diarrhea GENITOURINARY - denies dysuria or urinary frequency MUSCULOSKELETAL-positive for aches and muscle pains SKIN - denies rashes or new changed skin lesions NEUROLOGIC - denies focal weakness or sensory changes HEMATOLOGIC/LYMPHATIC -positive for easy bruising. lymphadenopathy. [facility] ED PFSH: Medical History CAD (coronary artery disease) GERD (gastroesophageal reflux disease) HTN (hypertension) Family History Sister Cancer Cervical CA Grandfather Cancer Mother Hypertension Social History Smoking and tobacco status: current every day smoker History of recent travel: No Physical Exam Narrative: EXAM NARRATIVE: GENERAL/CONSTITUTIONAL -mildly ill-appearing. No acute distress. Eyes - PERRL, no conjunctival injection ENMT - Atraumatic external nose and ears. Moist mucous membranes NECK - supple. trachea midline CARDIOVASCULAR - regular rate and rhythm. Peripheral pulses 2+ and equal RESPIRATORY -clear to auscultation bilaterally. No retractions or accessory muscle use. ABDOMEN/GI - Nontender/Nondistended. No tenderness to percussion or evidence of peritonitis MSK - Extremities without obvious deformity or tenderness to palpation SKIN - Warm, Dry NEURO - alert and appropriately oriented. strength and sensation intact. Moves all extremities equally. PSYCH - Appropriate mood and affect Course ED course: - Patient was seen and evaluated by me at bedside - Patient placed on cardiac monitors, IV access obtained - Initial evaluation notable for somewhat ill appearance, no acute distress -Symptom treatment ordered - Labs notable for no leukocytosis, negative procalcitonin. Metabolic panel notable for likely mild dehydration. Urinalysis without evidence of urinary tract infection. - Imaging notable for no acute process - Upon serial reexamination after treatment the patient was improved - Based on patient history, evaluation, labs, and imaging as interpreted the most likely cause of the patient's condition is viral in nature, though initial Covid test was negative I would not be surprised if the send out is positive. - The results of ED evaluation were discussed with the patient including prescri ptions and/or symptomatic cares (if applicable) including appropriate and responsible use, followup plan, and return precautions. The patient verbalized understanding and felt safe for discharge. - Patient discharged in satisfactory condition. Vital Signs: Vital signs: Vital Signs Temperature 97.8 F 11/06/20 22:14 Pulse Rate 70 11/06/20 23:22 Respiratory Rate 16 11/06/20 23:22 Blood Pressure 107/56 11/06/20 23:22 Pulse Oximetry 96 11/06/20 23:22 MDM - COVID Medical Records: Attestation: I reviewed the patient's medical records. Lab Data: Attestation: I reviewed the patient's lab results. Labs: Lab Results 11/06/20 11/06/20 11/06/20 Range/Units 18:52 18:52 18:52 WBC 6.2 (4.0-10.0) 10^3/ uL RBC 4.86 (4.1-5.3) 10^6/u L Hgb 15.3 (11.7-16.6) g/dL Hct 44.7 (42.0-52.0) % MCV 92.0 (80-94) fl MCH 31.5 (28.0-34.0) pg MCHC 34.2 (30.0-36.0) g/dL RDW 13.2 (12.1-15.1) % Plt Count 182 (130-400) 10^3/c mm MPV 9.9 (7.4-10.4) fL Neut % (Auto) 77.7 % Lymph % (Auto) 10.9 % [place] % (Auto) 11.0 % Eos % (Auto) 0.0 % Baso % (Auto) 0.2 % Neut # (Auto) 4.79 (1.8-7.7) 10^3/u L Lymph # (Auto) 0.7 L (0.8-4.8) 10^3/u L [place] # (Auto) 0.7 (0.2-0.9) 10^3/u L Eos # (Auto) 0.0 (0.0-0.8) 10^3/u L Baso # (Auto) 0.0 (0.0-0.1) 10^3/u L Nucleated RBC % (a uto) 0 % Nucleated RBCs # 0.0 /100WBC Sodium 130 L (136-145) mmol/L Potassium 4.3 (3.5-5.1) mmol/L Chloride 94 L (98-107) mmol/L Carbon Dioxide 21 L (22-29) mmol/L Anion Gap 19.3 H (5-19) BUN 8 (8-23) mg/dL Creatinine 0.7 (0.7-1.2) mg/dL GFR Calculation 113.5 (90-130) mL/min Glucose 89 (65-115) mg/dL Calculated Osmolal ity 268 L (285-295) mOsm/k g Lactic Acid 1.3 (0.5-2.2) mmol/L Calcium 8.2 L (8.5-10.5) mg/dL Total Bilirubin 0.4 (0.15-1.2) mg/dL AST 45 H (0-40) U/L ALT 38 (0-41) U/L Alkaline Phosphata se 118 (40-130) IU/L Troponin T Baselin e (0-15) ng/L Troponin T 120 Min [place] (0-15) ng/L Delta Troponin T (0-10) ABS# C-Reactive Protein 24.3 H (0.0-4.9) mg/L NT-Pro-B Natriuret Pep 189 H (0-125) pg/mL Total Protein 6.7 (6.6-8.7) g/dL Albumin 4.2 (3.5-5.2) g/dL Globulin 2.5 (1.3-4.6) g/dL Procalcitonin 0.09 (0-0.5) ng/mL Urine Color (Yellow) Urine Appearance (CLEAR) Urine pH (5-7) Ur Specific Gravit y (1.005-1.030) Urine Protein (Negative) Urine Glucose (UA) (Normal) Urine Ketones (Negative) Urine Blood (Negative) Urine Nitrate (Negative) Urine Bilirubin (Negative) Urine Urobilinogen (Negative) mg/dL Ur Leukocyte Marija ase (Negative) Urine RBC (0-2) /hpf Urine WBC (0-5) /hpf Ur Squamous Epith Cells (0-5) /hpf Amorphous Sediment Urine Bacteria (NONE) /hpf Urine Mucus /hpf Nasal/Oral COVID-1 9 PCR Influenza Type A A g (Negative) Influenza Type B A g (Negative) SARS-CoV-2 Ag (Rap id) (Negative) 11/06/20 11/06/20 11/06/20 Range/Units 18:52 18:52 19:45 WBC (4.0-10.0) 10^3/ uL RBC (4.1-5.3) 10^6/u L Hgb (11.7-16.6) g/dL Hct (42.0-52.0) % MCV (80-94) fl MCH (28.0-34.0) pg MCHC (30.0-36.0) g/dL RDW (12.1-15.1) % Plt Count (130-400) 10^3/c mm MPV (7.4-10.4) fL Neut % (Auto) % Lymph % (Auto) % [place] % (Auto) % Eos % (Auto) % Baso % (Auto) % Neut # (Auto) (1.8-7.7) 10^3/u L Lymph # (Auto) (0.8-4.8) 10^3/u L [place] # (Auto) (0.2-0.9) 10^3/u L Eos # (Auto) (0.0-0.8) 10^3/u L Baso # (Auto) (0.0-0.1) 10^3/u L Nucleated RBC % (a uto) % Nucleated RBCs # /100WBC Sodium (136-145) mmol/L Potassium (3.5-5.1) mmol/L Chloride (98-107) mmol/L Carbon Dioxide (22-29) mmol/L Anion Gap (5-19) BUN (8-23) mg/dL Creatinine (0.7-1.2) mg/dL GFR Calculation (90-130) mL/min Glucose (65-115) mg/dL Calculated Osmolal ity (285-295) mOsm/k g Lactic Acid (0.5-2.2) mmol/L Calcium (8.5-10.5) mg/dL Total Bilirubin (0.15-1.2) mg/dL AST (0-40) U/L ALT (0-41) U/L Alkaline Phosphata se (40-130) IU/L Troponin T Baselin e 8 (0-15) ng/L Troponin T 120 Min [place] (0-15) ng/L Delta Troponin T (0-10) ABS# C-Reactive Protein (0.0-4.9) mg/L NT-Pro-B Natriuret Pep (0-125) pg/mL Total Protein (6.6-8.7) g/dL Albumin (3.5-5.2) g/dL Globulin (1.3-4.6) g/dL Procalcitonin (0-0.5) ng/mL Urine Color (Yellow) Urine Appearance (CLEAR) Urine pH (5-7) Ur Specific Gravit y (1.005-1.030) Urine Protein (Negative) Urine Glucose (UA) (Normal) Urine Ketones (Negative) Urine Blood (Negative) Urine Nitrate (Negative) Urine Bilirubin (Negative) Urine Urobilinogen (Negative) mg/dL Ur Leukocyte Marija ase (Negative) Urine RBC (0-2) /hpf Urine WBC (0-5) /hpf Ur Squamous Epith Cells (0-5) /hpf Amorphous Sediment Urine Bacteria (NONE) /hpf Urine Mucus /hpf Nasal/Oral COVID-1 9 PCR Influenza Type A A g Negative (Negative) Influenza Type B A g Negative (Negative) SARS-CoV-2 Ag (Rap id) Negative (Negative) 11/06/20 11/06/20 11/06/20 Range/Units 19:45 20:55 21:12 WBC (4.0-10.0) 10^3/ uL RBC (4.1-5.3) 10^6/u L Hgb (11.7-16.6) g/dL Hct (42.0-52.0) % MCV (80-94) fl MCH (28.0-34.0) pg MCHC (30.0-36.0) g/dL RDW (12.1-15.1) % Plt Count (130-400) 10^3/c mm MPV (7.4-10.4) fL Neut % (Auto) % Lymph % (Auto) % [place] % (Auto) % Eos % (Auto) % Baso % (Auto) % Neut # (Auto) (1.8-7.7) 10^3/u L Lymph # (Auto) (0.8-4.8) 10^3/u L [place] # (Auto) (0.2-0.9) 10^3/u L Eos # (Auto) (0.0-0.8) 10^3/u L Baso # (Auto) (0.0-0.1) 10^3/u L Nucleated RBC % (a uto) % Nucleated RBCs # /100WBC Sodium (136-145) mmol/L Potassium (3.5-5.1) mmol/L Chloride (98-107) mmol/L Carbon Dioxide (22-29) mmol/L Anion Gap (5-19) BUN (8-23) mg/dL Creatinine (0.7-1.2) mg/dL GFR Calculation (90-130) mL/min Glucose (65-115) mg/dL Calculated Osmolal ity (285-295) mOsm/k g Lactic Acid (0.5-2.2) mmol/L Calcium (8.5-10.5) mg/dL Total Bilirubin (0.15-1.2) mg/dL AST (0-40) U/L ALT (0-41) U/L Alkaline Phosphata se (40-130) IU/L Troponin T Baselin e (0-15) ng/L Troponin T 120 Min [place] 10.02 (0-15) ng/L Delta Troponin T 2.02 (0-10) ABS# C-Reactive Protein (0.0-4.9) mg/L NT-Pro-B Natriuret Pep (0-125) pg/mL Total Protein (6.6-8.7) g/dL Albumin (3.5-5.2) g/dL Globulin (1.3-4.6) g/dL Procalcitonin (0-0.5) ng/mL Urine Color Yellow (Yellow) Urine Appearance Clear (CLEAR) Urine pH 5 (5-7) Ur Specific Gravit y 1.015 (1.005-1.030) Urine Protein 1+ H (Negative) Urine Glucose (UA) Norm (Normal) Urine Ketones 2+ H (Negative) Urine Blood Neg (Negative) Urine Nitrate Negative (Negative) Urine Bilirubin Neg (Negative) Urine Urobilinogen Norm (Negative) mg/dL Ur Leukocyte Marija ase Negative (Negative) Urine RBC 0-4 H (0-2) /hpf Urine WBC 0-4 H (0-5) /hpf Ur Squamous Epith Cells 0-4 H (0-5) /hpf Amorphous Sediment Not Reportable Urine Bacteria Trace (NONE) /hpf Urine Mucus 2+ /hpf Nasal/Oral COVID-1 9 PCR Cancelled Influenza Type A A g (Negative) Influenza Type B A g (Negative) SARS-CoV-2 Ag (Rap id) (Negative) EKG Data: EKG 1: Attestation: I personally reviewed and interpreted this EKG as follows: EKG interpretation date: 11/06/20 EKG interpretation time: 19:00 Prior EKG tracings: available for review Interpretation: Twelve-lead EKG shows a regular sinus rhythm at a rate of 103. MI interval 159, QRS duration 90, QTc 404. Normal axis. Interpretation: Sinus tachycardia EKG 2: Attestation: I personally reviewed and interpreted this EKG as follows: EKG interpretation date: 11/06/20 EKG interpretation time: 20:13 Prior EKG tracings: available for review Interpretation: Twelve-lead EKG shows a regular sinus rhythm at a rate 97. MI interval 150, QRS duration 93, QTc 425. Normal axis. Interpretation: Sinus rhythm. Similar to prior. COVID Results: SARS-CoV-2 Antigen (Rapid) Negative (Negative) 11/06/20 18:52 11/06/20 SARS-CoV-2 RNA (RT-PCR) Pending 11/06/20 19:54 11/06/20 Nasal/Oral Coronavirus 2019 PCR Not detected 06/09/20 14:03 06/09/20 Discharge Plan Discharge Patient Disposition: Home Clinical Impression: Viral syndrome, Dehydration, Suspected severe acute respiratory syndrome coronavirus 2 (SARS-CoV-2) infection Condition: Stable Prescriptions: New Zofran 4 mg tablet 4 mg PO Q8H 4 Days Qty: 12 RF: 0 No Action aspirin [Adult Low Dose Aspirin] 81 mg tablet,delayed release (DR/EC) 81 mg PO DAILY RF: 0 pantoprazole 40 mg tablet,delayed release (DR/EC) 40 mg PO DAILY RF: 0 nitroglycerin [Nitrostat] 0.4 mg tablet, sublingual 0.4 mg SUBLINGUAL Q5M PRN (Reason: chest pain) 30 Days Qty: 25 RF: 6 atorvastatin 80 mg tablet 80 mg PO DAILY Qty: 90 RF: 3 lisinopril 5 mg tablet 5 mg PO DAILY Qty: 90 RF: 3 metoprolol succinate 25 mg tablet extended release 24 hr 25 mg PO DAILY Qty: 90 RF: 3 Brilinta 90 mg tablet 90 mg PO BID RF: 0 hydrocodone-acetaminophen 5-325 mg tablet 1 tab PO Q6H PRN (Reason: pain) Qty: 28 RF: 0 Discharge Orders: Discharge ED (Routine); Ordered 11/06/20 Ordered By: Josef Mota Referrals: Louise Ness NP [Primary Care Provider] - Discharge Diet: Usual diet Discharge Activity: Resume usual activity Patient Instructions: Dehydration (ED), Viral Syndrome (ED), Opioid Safety Activity Restrictions/Additional Instructions: Thank you for visiting the emergency department. You were seen and evaluated for Covid-like symptoms. The exact cause of your symptoms is unclear, the rapid test was negative however a send out is pending. Your symptoms are consistent with COVID-19 or other viral syndrome. Please follow-up with your primary care provider. Please return the emergency department for anything that you are concerned about and feel needs emergency department evaluation. Coding Level of Care Code ED Financial Services Associate for Mariela Nolan
[2020-11-06 18:58] LABS: Basophils % 0.2 %; Hematocrit 44.7 % (42.0-52.0); Hemoglobin 15.3 g/dL (11.7-16.6); Lymphocytes # 0.7 10^3/uL (0.8-4.8); Lymphocytes % 10.9 %; Mean Corpuscular HGB Conc 34.2 g/dL (30.0-36.0); Mean Corpuscular Hemoglobin 31.5 pg (28.0-34.0); Mean Platelet Volume 9.9 fL (7.4-10.4); Monocytes # 0.7 10^3/uL (0.2-0.9); Neutrophils # 4.79 10^3/uL (1.8-7.7); Neutrophils % 77.7 %; Nucleated Red Blood Cells % 0 %; Platelet Count 182 10^3/cmm (130-400); Red Blood Count 4.86 10^6/uL (4.1-5.3); Red Cell Distribution Width 13.2 % (12.1-15.1); White Blood Count 6.2 10^3/uL (4.0-10.0)
[2020-11-06 19:26] LABS: SARS Covid-2 Antigen Negative (Negative)
[2020-11-06 19:38] LABS: Lactic Sepsis W/Reflex 1.3 mmol/L (0.5-2.2)
[2020-11-06 19:39] LABS: Troponin(5th) Baseline 8 ng/L (0-15)
[2020-11-06] MEDS: ketorolac 30 mg/mL INJ 15 MG IVP (19:43)
[2020-11-06] MEDS: acetaminophen 500 mg Tablet 1000 MG PO (19:43)
[2020-11-06] MEDS: sodium chloride 0.9% 500 ML IV (19:43)
[2020-11-06 19:49] LABS: NT Pro B Type Natriuretic Pept 189 pg/mL (0-125); Procalcitonin 0.09 ng/mL (0-0.5)
[2020-11-06 20:00] LABS: Alanine Aminotransferase 38 U/L (0-41); Albumin Level 4.2 g/dL (3.5-5.2); Alkaline Phosphatase 118 IU/L (40-130); Anion Gap 19.3 (5-19); Aspartate Amino Transferase 45 U/L (0-40); Blood Urea Nitrogen 8 mg/dL (8-23); C Reactive Protein 24.3 mg/L (0.0-4.9); Calcium 8.2 mg/dL (8.5-10.5); Carbon Dioxide 21 mmol/L (22-29); Chloride 94 mmol/L (98-107); Globulin 2.5 g/dL (1.3-4.6); Glomerular Filtration Rate 113.5 mL/min (90-130); Glucose 89 mg/dL (65-115); Osmolality Calculated 268 mOsm/kg (285-295); Potassium 4.3 mmol/L (3.5-5.1); Sodium 130 mmol/L (136-145); Total Bilirubin 0.4 mg/dL (0.15-1.2); Total Protein 6.7 g/dL (6.6-8.7)
--- NOTE | 2020-11-06 20:23 | PC.NURSE ---
pt gave verbal consent to speak with Jazmin Becker
--- NOTE | 2020-11-06 20:27 | ECG_ITS ---
[facility] Test Date: 2020-11-06 Pat Name: Salvador Becker Department: Room: Gender: Male Brown Sourer: : 1955 Requested By: Josef Mota Order Number: [id number] Soraida MD: Mendy Byrd M.D. Measurements Intervals [place] Rate: 97 P: 77 SD: 150 QRS: 86 QRSD: 93 T: 75 QT: 334 QTc: 425 Interpretive Statements SINUS RHYTHM INCOMPLETE RIGHT BUNDLE BRANCH BLOCK [90+ ms QRS DURATION, TERMINAL R IN V1/V2, 40+ ms S IN I/aVL/V4/V5/V6] Compared to ECG 11/06/2020 18:55:44 Incomplete right bundle-branch block now present Sinus tachycardia no longer present Myocardial infarct finding no longer present Electronically Signed On 11-08-2020 21:38:17 CDT by Mendy Byrd M.D. [email or web address]
[2020-11-06 20:30] LABS: Influenza A by IFA Negative (Negative); Influenza B by IFA Negative (Negative)
[2020-11-06 21:29] LABS: Bilirubin Urine Neg (Negative); Blood Urine Neg (Negative); Glucose Urine UA Norm (Normal); Ketones Urine 2+ (Negative); Nitrate Urine Negative (Negative); Protein Urine 1+ (Negative); Specific Gravity, Urine 1.015 (1.005-1.030); Urine Appearance Clear (CLEAR); Urine Color Yellow (Yellow); Urobilinogen Urine Norm (Negative); pH Urine 5 (5-7)
[2020-11-06 21:30] LABS: Add Urine Microscopic? YES; Leukocyte Esterase Urine Negative (Negative)
[2020-11-06 21:31] LABS: Troponin 5 2HR 10.02 ng/L (0-15); Troponin 5 2HR Delta 2.02 ABS# (0-10)
[2020-11-06] MEDS: lactated ringers 500 ML 999 ML IV (21:34)
[2020-11-06 21:59] LABS: RBC Urine 0-4 /hpf (0-2); Squamous Epithelial Cell Urine 0-4 /hpf (0-5); WBC Urine 0-4 /hpf (0-5)
[2020-11-06 22:00] LABS: Add Urine Culture? No; Bacteria Urine TRACE /hpf; Mucus Urine 2+ /hpf
[2020-11-06] MEDS: lactated ringers 1,000 ML 999 ML IV (22:07)
[2020-11-08 16:59] LABS: Quest SARS-CoV-2 RNA NOT DETECTED (NOT DETECTED)
== END 2020-11-06 23:10 | disposition home or self-care (01) ==
PROVIDERS: Emergency Provider Emergency Medicine; PCP Nurse Practitioner Family
DX: Z20.822 Contact with and (suspected) exposure to COVID-19 (principal); B34.9 Viral infection, unspecified; E86.0 Dehydration; Z79.82 Long term (current) use of aspirin; I25.10 Atherosclerotic heart disease of native coronary artery without angina pectoris; I10 Essential (primary) hypertension; F17.210 Nicotine dependence, cigarettes, uncomplicated
CPT/HCPCS: 36415; 71045; 80053; 81001; 83605; 83880; 84145; 84484; 85025; 86140; 87426; 87635; 87804; 93005; 96361; 96374; 99284; J1885; J7040

== ENCOUNTER 2020-11-25 06:33 | Outpatient (RCR) | payer OTHER, SELFPAY ==
--- NOTE | 2020-11-16 17:03 | ONC FU_ITS ---
Dr. Hayes follow up note Patient: Salvador Becker Unit #: [id number]: 1955 Dicatated By: Tom Hayes M.D.Date of Visit:Nov 16, 2020 Onc Med Follow-up/Prog Note History of Present Illness: Mr. 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 The path report indicated 4 out of 4 lymph nodes containing metastatic large cell carcinoma, extracapsular extension, greater dimension 2.7 cm lymph node from level 2B. Another specimen from level 2 in the right neck contained metastatic undifferentiated large cell carcinoma in 3 out of 3 lymph nodes with extracapsular extension identified and the greatest dimension being 1.2 cm. Lymph node from level 3 of the right neck revealed metastatic undifferentiated large cell carcinoma in 3 out of 6 lymph nodes with greatest dimension being 2.4 cm. 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 5 lymph nodes taken from parotid gland were negative for malignancy. Soft tissue from right neck level 1 contained metastatic undifferentiated large cell carcinoma in one of the 1 lymph node., Patient was referred to head and neck surgery at [facility], [place], postoperative PET scan done at [facility] showed a Warthin's tumor in the left parotid tail and increased uptake in the right submandibular area. Additional surgery was performed at [facility] to further dissect the right submandibular area, metastatic poorly differentiated carcinoma was found in 3 out of 4 lymph nodes. A right cheek lesion was excised and contained sebaceous hyperplasia. Patient was referred to radiation oncology Dr. Yanes at [facility] who recommended additional radiation therapy to the right neck. As per patient he has seen medical oncologist, but does remember the name at [facility] and he was recommended no chemotherapy but radiation alone, due to convenience patient decided to come to [facility]. And as per patient he has seen Dr. Norman recently and who suggested evaluation for rule of concurrent chemotherapy with radiation therapy and high risk patient with extracapsular extension seen in multiple lymph nodes. And cancer type ID was ordered on June 15, 2020 which confirmed with a 90% probability head and neck salivary gland carcinoma. Patient denies any specific complaints today no mouth sores, no dysphagia but problem when chewing because of recently underwent dental extraction as preparation for treatment. No fever chills, no nausea or vomiting, no diarrhea constipation, no new bony pains, no dysphagia. Has past medical history significant for myocardial infarction in February 2018. 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 Denies alcohol use. Medications: Adult Aspirin Regimen 1 (81 mg) Tablet, enteric coated Oral daily, Atorvastatin Calcium 0.5 Tablet (of 10 mg) Oral at bedtime, Brilinta 1 (90 mg) Tablet Oral daily, Lisinopril 1 (5 mg) Tablet Oral daily, Metoprolol Succinate ER 1 (25 mg) Tablet SR 24 HR Oral daily, Pantoprazole Sodium 1 (40 mg) Tablet, enteric coated Oral daily Allergies: No Known Allergies. Review of Systems: Review of Systems is not available for this patient. Vital Signs: Performed on Nov 16, 2020 15:00 Height - 70.00 in Weight - 177.6 lbs (LOW) BSA - 1.98 sq.m BMI - 25.48 Temperature - 99.2 F (HIGH) Pulse - 82 /min Respiration - 18 /min BP - 94/61 mm(hg) O2 Sat - 98 % Pain - 0 Fatigue - 5 Performance Status: 0 - Fully active, able to carry on all predisease activities without restrictions. (ECOG) Physical Examination: ENMT - No mouth sores, no thrush, postoperative changes in the right neck, Respiratory - Lungs are clear to auscultation, Cardiovascular - Regular rate and rhythm of heart, Abdomen - Soft, bowel sounds present, Extremities - No visible edema. Lab/Imaging: Most recent lab results are not available for this patient. 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 With multiple lymph nodes involvement and extranodal extension History of laryngeal carcinoma status post radiation therapy Coronary artery disease status post ME Plan: Discussed with patient regarding his disease status and treatment options, which include postop radiation therapy or combined chemoradiation. As per patient he has seen radiation oncologist and medical oncologist at [facility] and he was recommended radiation therapy alone and medical oncologist also recommended no chemotherapy, as per discussion in the tumor board. And patient is also reluctant to consider chemotherapy but when Dr. Norman, radiation oncologist asked him to see us patient reluctantly came., As per NCCN guidelines, postop radiation Alone is a preferred treatment option whereas combined chemoradiation is a category 2B, patient and his caregiver is requesting me to discuss with his medical oncologist at [facility] as his case was discussed in tumor board there and radiation therapy alone was recommended and patient is anxious and concerned about related side effect with combined chemoradiation, patient said he was also informed ,with history of radiation therapy for laryngeal carcinoma and now getting radiation therapy second time to his neck area can cause serious toxicity and damages especially with the major blood vessel blowout, patient was informed, that a combined chemoradiation may provide him better local control but at increased toxicity and may not improve overall survival. so at patient's request we will discuss with his medical oncologist at [facility]. So at this point, patient will proceed with radiation therapy alone and we will see him on as-needed basis. Signed By: Tom Hayes M.D. <<Signature on File>>
--- NOTE | 2020-11-22 | CT_ITS ---
Radiation Therapy Planning CT images; total exam DLP: 873.86 mGy-cm MTDD
== END 2020-11-25 23:59 | disposition home or self-care (01) ==
LOC: ONCMED 06:33
PROVIDERS: Absent Provider Radiology Radiation Oncology; PCP Nurse Practitioner Family; Visit Provider Radiology Radiation Oncology
DX: Z51.0 Encounter for antineoplastic radiation therapy (principal); C08.0 Malignant neoplasm of submandibular gland; C77.8 Secondary and unspecified malignant neoplasm of lymph nodes of multiple regions; Z79.899 Other long term (current) drug therapy
CPT/HCPCS: 77300; 77301; 77334; 77336; 77338; 77386; 99204; Q9967

== ENCOUNTER 2020-12-24 06:16 | Outpatient (RCR) | payer OTHER, SELFPAY ==
--- NOTE | 2020-12-02 08:35 | ONCRAD TMN_ITS ---
Radiation Oncology Treatment Management Note Patient Name: Salvador Becker Date of : 1955 Date of Service: 11/30/2020 Attending Physician: Kurt Norman M.D. 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 A right parotidectomy with lymph node dissection was performed on June 15, 2020. A postoperative PET CT identified FDG activity in the right submandibular gland resulting in a second lymph node dissection completed at [facility] in July. The patient has received 10 Gy of a prescribed 60 Hernandez with an intensity modulated radiotherapy plan utilizing a step and shoot treatment technique. Upon review of systems, he denied any complaints related to radiotherapy. On physical examination, the patient weighed 178 lbs. His temperature was 97.5 ???F with a blood pressure of 103/68 mmHg. His pulse was 67 bpm and the respiratory rate was 18. There was no erythema within the treatment aparicio. Continue post-operative head and neck radiotherapy as prescribed. Signed by: Dr. Kurt Norman 12/02/2020 8:33:15 AM
--- NOTE | 2020-12-07 16:01 | ONCRAD TMN_ITS ---
Radiation Oncology Treatment Management Note Patient Name: Salvador Becker Date of : 1955 Date of Service: 12/07/2020 Attending Physician: Kurt Norman M.D. 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 A right parotidectomy with lymph node dissection was performed on June 15, 2020. A postoperative PET CT identified FDG activity in the right submandibular gland resulting in a second lymph node dissection completed at [facility] in July. The patient has received 20 Gy of a prescribed 60 Hernandez with an intensity modulated radiotherapy plan utilizing a step and shoot treatment technique. Upon review of systems, he denied any complaints related to radiotherapy. On physical examination, the patient weighed 177 lbs. His temperature was 97.9 ???F with a blood pressure of 103/65 mmHg. His pulse was 74 bpm and the respiratory rate was 18. There was no erythema within the treatment aparicio. Continue post-operative head and neck radiotherapy as planned. Signed by: Dr. Kurt Norman 12/07/2020 4:00:01 PM
--- NOTE | 2020-12-14 15:49 | ONCRAD TMN_ITS ---
Radiation Oncology Treatment Management Note Patient Name: Salvador Becker Date of : 1955 Date of Service: 12/14/2020 Attending Physician: Kurt Norman M.D. 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 A right parotidectomy with lymph node dissection was performed on June 15, 2020. A postoperative PET CT identified FDG activity in the right submandibular gland resulting in a second lymph node dissection completed at [facility] in July. The patient has received 30 Gy of a prescribed 60 Hernandez with an intensity modulated radiotherapy plan utilizing a step and shoot treatment technique. Upon review of systems, he described mild xerostomia. On physical examination, the patient weighed 182 lbs. His temperature was 97.5 ???F and the blood pressure was 119/72 mmHg. His pulse was 71 bpm and the respiratory rate was 18. There was no erythema within the treatment aparicio. Continue post-operative head and neck radiotherapy as prescribed, Signed by: Dr. Kurt Norman 12/14/2020 3:48:34 PM
--- NOTE | 2020-12-21 15:56 | ONCRAD TMN_ITS ---
Radiation Oncology Treatment Management Note Patient Name: Salvador Becker Date of : 1955 Date of Service: 12/21/2020 Attending Physician: Kurt Norman M.D. 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 A right parotidectomy with lymph node dissection was performed on June 15, 2020. A postoperative PET CT identified FDG activity in the right submandibular gland resulting in a second lymph node dissection completed at [facility] in July. The patient has received 40 Gy of a prescribed 60 Hernandez with an intensity modulated radiotherapy plan utilizing a step and shoot treatment technique. Upon review of systems, he described mild xerostomia and dysgeusia. On physical examination, the patient weighed 180 lbs. His temperature was 97.7 ???F and the blood pressure was 110/74 mmHg. His pulse was 67 bpm and the respiratory rate was 18. There was no erythema within the treatment aparicio. Continue post-operative head and neck radiotherapy as planned, Signed by: Dr. Kurt Norman 12/21/2020 3:54:33 PM
== END 2020-12-26 23:59 | disposition home or self-care (01) ==
LOC: ONCMED 06:16
PROVIDERS: Absent Provider Radiology Radiation Oncology; PCP Nurse Practitioner Family; Visit Provider Radiology Radiation Oncology
DX: Z51.0 Encounter for antineoplastic radiation therapy (principal); C08.9 Malignant neoplasm of major salivary gland, unspecified; Z79.899 Other long term (current) drug therapy
CPT/HCPCS: 77014; 77336; 77386

== ENCOUNTER 2021-01-05 05:42 | Outpatient (RCR) | payer OTHER, SELFPAY ==
--- NOTE | 2020-12-28 16:21 | ONCRAD TMN_ITS ---
Radiation Oncology Weekly Treatment Management Patient: Eugenio Franco> MR#: [id number] : 1955> Attending Physician: Dr. Sinan Pinedo Date of Service: 12/28/2020 Referring Physician(s) : Thomas Stanley M.D. 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 PORT, Ref. ID: [id number], Energy: 6X, Dose/Fx (cGy): 200, #Fx: , Dose Correction (cGy): 0, Total Dose (cGy): 4,800, Start Date: 11/24/2020, Elapsed Days: 34 Reason for visit: The patient is being seen today as part of their regularly scheduled weekly on treatment visits to assess for acute toxicities from radiotherapy. Review of Systems: Mild dry mouth. Mild loss of taste. Gargling with salt soda. Still smoking but less now ??? ppd was 2 ppd. 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 Vital Signs: Physical Exam: Erythema and tanning right neck. No desquamation. Imaging: Radiation therapy imaging related to accurate target localization (i.e. KV, MV and CBCT) was reviewed. Appropriate changes, if any, were made to ensure treatment accuracy. Plan: Good tolerance of treatment. Continue as planned. Discussed value of complete smoking cessation. Signed by: Dr. Sinan Pinedo 12/28/2020 4:19:54 PM
--- NOTE | 2021-01-04 15:37 | ONCRAD TMN_ITS ---
Radiation Oncology Treatment Management Note Patient Name: Salvador Becker Date of : 1955 Date of Service: 01/04/2021 Attending Physician: Kurt Norman M.D. 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 A right parotidectomy with lymph node dissection was performed on June 15, 2020. A postoperative PET CT identified FDG activity in the right submandibular gland resulting in a second lymph node dissection completed at [facility] in July. The patient has received 58 Gy of a prescribed 60 Hernandez with an intensity modulated radiotherapy plan utilizing a step and shoot treatment technique. Upon review of systems, he described skin break-down of the neck. On physical examination, the patient weighed 174 lbs. His temperature was 97.9 ???F and the blood pressure was 95/70 mmHg. His pulse was 97 bpm and the respiratory rate was 18. There was a grade III dermatitis of the lower neck. Continue post-operative head and neck radiotherapy as prescribed. Signed by: Dr. Kurt Norman 01/04/2021 3:35:51 PM
--- NOTE | 2021-01-13 15:39 | N.ONRD TS_ITS ---
Radiation OncologyTreatment Summary Patient Name: Salvador Becker Date of : 1955 Date of Service: 01/05/2021 Attending Physician: Kurt Norman M.D. 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 A right parotidectomy with lymph node dissection was performed on June 15, 2020. A postoperative PET CT identified FDG activity in the right submandibular gland resulting in a second lymph node dissection completed at [facility] in July. Head and neck radiation therapy was delivered between the dates of November 24, 2020 through January 05, 2021. A prescribed dose of 66 Gy was delivered in 33 fractions encompassing 43 elapsed days. The postoperative bed and right cervical lymph node stations were treated utilizing an intensity modulated radiotherapy plan with a step and shoot treatment technique. The plan required seven gantry angles (190???, 225???, 250???, 275???, 300???, 325???, and 350???) replicating a partial arc. The collimator angle was 0???. The field sizes spanned 8.8 cm x 16 cm to 15.5 cm x 15 cm. The SSDs measured a minimum of 83.7 cm to a maximum of 98.6 cm. The ports delivered 123 MU, 103 MU, 141 MU, 203 MU, 266 MU, 182 MU, and 171 MU corresponding to the gantry angles described. Low energy photons were prescribed. All treatments were performed with the Right Skills linear accelerator and an isocentric technique. The dose was calculated by Anisotropic Analytic Algorithm with the plan normalized to deliver 100% of the prescription dose to 95% of the planning target volume. Signed by: Dr. Kurt Norman 01/13/2021 3:38:29 PM
== END 2021-01-25 23:59 | disposition home or self-care (01) ==
LOC: ONCMED 05:42
PROVIDERS: PCP Nurse Practitioner Family; Visit Provider Radiology Radiation Oncology
DX: Z51.0 Encounter for antineoplastic radiation therapy (principal); C08.9 Malignant neoplasm of major salivary gland, unspecified; Z79.899 Other long term (current) drug therapy
CPT/HCPCS: 77336; 77386

== ENCOUNTER 2021-02-04 06:27 | Outpatient (RCR) | payer OTHER, SELFPAY ==
--- NOTE | 2021-02-04 08:54 | ONCRAD EPV_ITS ---
Radiation Oncology Follow-Up Note Patient Name: Salvador Becker Date of : 1955 Date of Service: 02/04/2021 Attending Physician: Kurt Norman M.D. Salvador Becker returned to my office this morning for a scheduled follow-up appointment. 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 A right parotidectomy with lymph node dissection was performed on June 15, 2020. A postoperative PET CT identified FDG activity in the right submandibular gland resulting in a second lymph node dissection completed at [facility] in July. Head and neck radiation therapy was delivered between the dates of November 24, 2020 through January 05, 2021. A prescribed dose of 66 Gy was delivered in 33 fractions encompassing 43 elapsed days. On physical examination, He weighed 173 lbs. The temperature was 98.2???F and his blood pressure was 128/81 mmHg. The pulse was 70 bpm and the respiratory rate was 18 breaths per minute. Examination of the oral cavity failed to identify palpable or visible abnormalities. In summary, Mr. Becker returned for a post-radiotherapy follow-up appointment. There are no sequelae from treatment. He will continue close observation by his coding technician. Signed by: Dr. Kurt Norman 02/04/2021 8:53:09 AM
== END 2021-02-25 23:59 | disposition home or self-care (01) ==
LOC: ONCMED 06:27
PROVIDERS: PCP Nurse Practitioner Family; Visit Provider Radiology Radiation Oncology
DX: C08.0 Malignant neoplasm of submandibular gland (principal); Z92.3 Personal history of irradiation
CPT/HCPCS: 99024

== ENCOUNTER 2021-04-26 14:50 | Outpatient (CLI) | payer OTHER, SELFPAY ==
--- NOTE | 2021-04-26 15:02 | CT_ITS ---
WS: [id number] CT NECK TECHNIQUE: Contrast-enhanced CT of the neck with coronal and sagittal reformatted images. CLINICAL INFORMATION: MALIGNANT NEOPLASM OF PAROTID GLAND COMPARISON: CT neck May 28, 2020 and PET/CT July 17, 2020 DLP: 241.[address] scans at [facility] use at least one of these dose optimization techniques: automated e xposure control; mA and/or kV adjustment per patient size (includes targeted exams where dose is matc hed to clinical indication); or iterative reconstruction. FINDINGS: Prior postoperative changes resection of the RIGHT parotid lesion with partial RIGHT parotidectomy. P ostoperative changes in the RIGHT parotid bed with thickening of the platysma. Treatment-related lazaro ges within the RIGHT neck soft tissues. Resection of the RIGHT submandibular gland with surgical clip s in the submandibular bed. Submandibular gland resection is new compared to the prior PET/CT July 17, 2020. Normal posterior nasopharynx. Normal parapharyngeal fat. No evidence of supraglottic or glottic mass. Mild thickening of the pharyngeal soft tissues likely due to treatment-related changes. Subglottic a irway is patent. Normal thyroid gland. Paranasal sinuses and mastoid air cells are well aerated. Stable enhancing lesion in tail LEFT parotid measuring 7.5 mm demonstrates FDG activity on the prior PET/CT suspected to represent contralateral Warthin tumor. Incidental intraparotid lymph nodes. CT/CT neck w con* [id number] IMPRESSION: 1. Postoperative changes RIGHT partial parotidectomy with resection of the RIG HT submandibular gland. 2. Postoperative changes RIGHT parotid bed with thickening of the platysma in the RIGHT neck. 3. No evidence of recurrent or progressive disease. 4. Treatment-related changes involving the pharyngeal and glottic soft tissues . 5. 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 This is FDG positive on the prior PET/CT and stab le since 06-16. 6. No cervical lymphadenopathy.
[2021-04-26 15:29] LABS: Blood Urea Nitrogen 7 mg/dL (8-23); Glomerular Filtration Rate 97.3 mL/min (90-130)
[2021-04-26] MEDS: iohexol 350 mg/mL 100 mL Btl IV (15:32)
== END 2021-04-26 14:51 | disposition home or self-care (01) ==
LOC: RAD 14:50
PROVIDERS: PCP Nurse Practitioner Family; Visit Provider Specialist
DX: C07 Malignant neoplasm of parotid gland (principal)
CPT/HCPCS: 70491; 82565; 84520

== ENCOUNTER 2021-08-12 11:09 | Outpatient (CLI) | payer MEDICARE, OTHER, SELFPAY ==
--- NOTE | 2021-08-12 11:31 | CT_ITS ---
WS: [id number] CT scan of the chest with IV contrast, additional two-dimensional coronal and sagittal reconstruction was performed. 08/12/2021 Clinical Data: MALIGNANT NEOPLASM OF PAROTID GLAND/GLOTTIS Comparison: CT chest, 11/29/2018. DLP: 729.[address] scans at [facility] use at least one of these dose optimization techniques: automated e xposure control; mA and/or kV adjustment per patient size (includes targeted exams where dose is matc hed to clinical indication); or iterative reconstruction. Findings: No nodules, masses or effusions are seen. There is a 1.2 cm pleural-based density in the left lower l obe seen best on axial image 45 of 66. The heart size is normal with no pericardial effusion. The pul monary arterial system and thoracic aorta demonstrate no abnormalities or dilatations. The trachea bi furcates normally into the bronchi. There is no axillary or significant mediastinal adenopathy. The upper abdomen demonstrates no abnormalities. The visualized liver, spleen, pancreas, gallbladder and adrenal glands are not remarkable. The superior poles of the kidneys are normal. The bones of the thorax show no metastatic lesions. CT/CT chest w con* [id number] Impression: 1. Pleural-based density, 1.2 cm in the left lower lobe seen best on axial imag e 45 of 66. Recommend repeat CT chest in 90 days. This pleural-based density is unlikely to represent a metastatic lesion but may represent atelectasis or ivan n a minimal pneumonia. 2. No other abnormal pulmonary findings are seen.
[2021-08-12] MEDS: iohexol 300 mg/mL 100 mL Btl IV (11:54)
== END 2021-08-12 11:10 | disposition home or self-care (01) ==
LOC: RAD 11:17
PROVIDERS: PCP Nurse Practitioner Family; Visit Provider Specialist
DX: C07 Malignant neoplasm of parotid gland (principal); J04.0 Acute laryngitis; J94.8 Other specified pleural conditions
CPT/HCPCS: 71260

== ENCOUNTER → 2021-12-05 08:53 | Outpatient (BNVA) | payer MEDICARE, OTHER, SELFPAY | PROVIDERS: PCP Nurse Practitioner Family; Visit Provider Internal Medicine Pulmonary Disease | DX: R91.1 Solitary pulmonary nodule (principal); R06.09 Other forms of dyspnea; Z71.6 Tobacco abuse counseling; I25.10 Atherosclerotic heart disease of native coronary artery without angina pectoris; J44.9 Chronic obstructive pulmonary disease, unspecified; Z85.818 Personal history of malignant neoplasm of other sites of lip, oral cavity, and pharynx; F17.210 Nicotine dependence, cigarettes, uncomplicated; Z95.5 Presence of coronary angioplasty implant and graft | CPT/HCPCS: 99204 ==

== ENCOUNTER 2021-12-28 06:18 | Outpatient (CLI) | payer MEDICARE, OTHER, SELFPAY ==
--- NOTE | 2021-12-28 06:30 | CT_ITS ---
WS: [email or web address] CT CHEST TECHNIQUE: Noncontrast CT of the chest with coronal and sagittal reformatted images. CLINICAL INFORMATION: 3 month f/u lung nodule COMPARISON: CT August 12, 2021. PET CT September 17, 2021 DLP: 716.[address] scans at [facility] use at least one of these dose optimization techniques: automated e xposure control; mA and/or kV adjustment per patient size (includes targeted exams where dose is matc hed to clinical indication); or iterative reconstruction. FINDINGS: Previously described pleural-based nodule in the LEFT lower lobe has decreased in size and density co mpared to previous likely inflammatory. Today this measures approximately 6 mm with a wispy resolving appearance. No new suspicious pulmonary parenchymal opacities. A few calcified granulomas. Mild chain offbearer joi emphysematous changes. No focal pneumonia or pleural fluid. Normal caliber thoracic aorta. Aortic calcification. Coronary calcification. No mediastinal or hilar lymphadenopathy. No axillary lymphadenopathy. Adrenal glands are normal. IMPRESSION: 1. Previously described LEFT lower lobe pleural-based nodule has decreased in size and density appea rs to be resolving. This has a wispy appearance today measuring 6 mm. 2. Mild chronic emphysematous changes. No other suspicious pulmonary parenchymal opacities. 3. No other significant changes compared to previous.
== END 2021-12-28 06:19 | disposition home or self-care (01) ==
LOC: RAD 06:19
PROVIDERS: Visit Provider Internal Medicine Pulmonary Disease
DX: R91.1 Solitary pulmonary nodule (principal)
CPT/HCPCS: 71250

== ENCOUNTER → 2021-12-29 15:46 | Outpatient (BNVA) | payer MEDICARE, OTHER, SELFPAY | PROVIDERS: Visit Provider Emergency Medicine | DX: J11.1 Influenza due to unidentified influenza virus with other respiratory manifestations (principal); J44.1 Chronic obstructive pulmonary disease with (acute) exacerbation; J45.901 Unspecified asthma with (acute) exacerbation | CPT/HCPCS: 87400 ==

== ENCOUNTER → 2022-01-04 15:58 | Outpatient (BNVA) | payer MEDICARE, SELFPAY | PROVIDERS: Visit Provider Family Medicine | DX: I25.10 Atherosclerotic heart disease of native coronary artery without angina pectoris (principal); J44.9 Chronic obstructive pulmonary disease, unspecified; R06.09 Other forms of dyspnea; I10 Essential (primary) hypertension; N40.0 Benign prostatic hyperplasia without lower urinary tract symptoms; K21.9 Gastro-esophageal reflux disease without esophagitis; F17.200 Nicotine dependence, unspecified, uncomplicated | CPT/HCPCS: 80053; 80061; 84153; 85025 ==

== ENCOUNTER 2022-02-01 07:05 | Outpatient (CLI) | payer MEDICARE, OTHER, SELFPAY | END 2022-02-01 07:06 | disposition home or self-care (01) | LOC: RT 07:11 | PROVIDERS: PCP Family Medicine; Visit Provider Internal Medicine Pulmonary Disease | DX: R91.1 Solitary pulmonary nodule (principal); R06.09 Other forms of dyspnea; J44.9 Chronic obstructive pulmonary disease, unspecified | CPT/HCPCS: 94060; 94618; 94726; 94729; J7613 ==

== ENCOUNTER → 2022-02-06 11:25 | Outpatient (BNVA) | payer MEDICARE, OTHER, SELFPAY | PROVIDERS: PCP Family Medicine; Visit Provider Internal Medicine Pulmonary Disease | DX: R91.1 Solitary pulmonary nodule (principal); R06.09 Other forms of dyspnea; Z71.6 Tobacco abuse counseling; I25.10 Atherosclerotic heart disease of native coronary artery without angina pectoris; J44.1 Chronic obstructive pulmonary disease with (acute) exacerbation; Z85.818 Personal history of malignant neoplasm of other sites of lip, oral cavity, and pharynx; F17.210 Nicotine dependence, cigarettes, uncomplicated | CPT/HCPCS: 99214 ==

== ENCOUNTER → 2022-02-14 13:40 | Outpatient (BNVA) | payer MEDICARE, OTHER, SELFPAY | PROVIDERS: PCP Family Medicine; Visit Provider Internal Medicine Cardiovascular Disease | DX: I25.10 Atherosclerotic heart disease of native coronary artery without angina pectoris (principal); I10 Essential (primary) hypertension; E78.00 Pure hypercholesterolemia, unspecified; J44.1 Chronic obstructive pulmonary disease with (acute) exacerbation; K21.9 Gastro-esophageal reflux disease without esophagitis; F17.210 Nicotine dependence, cigarettes, uncomplicated; I25.2 Old myocardial infarction | CPT/HCPCS: 99214 ==

== ENCOUNTER 2022-03-17 13:37 | Outpatient (CLI) | payer MEDICARE, OTHER, SELFPAY ==
--- NOTE | 2022-03-17 14:20 | XR_ITS ---
WS: [id number] CHEST 2 VIEWS HISTORY: COUGH COMPARISON: 11/06/2020 Lungs: Pulmonary hyperexpansion with flattened diaphragms. No mass or pneumonia. Cardiac size: Normal. Mediastinum/Aorta: Normal mediastinum. Bones: Normal. Surgical clips LEFT neck. XR/XR chest 2V* [id number] IMPRESSION: Chronic emphysema. No pneumonia.
== END 2022-03-17 13:38 | disposition home or self-care (01) ==
LOC: RAD 13:41
PROVIDERS: PCP Family Medicine; Visit Provider Specialist
DX: J43.9 Emphysema, unspecified (principal); R05.9 Cough, unspecified
CPT/HCPCS: 71046

== ENCOUNTER → 2022-08-09 09:13 | Outpatient (BNVA) | payer MEDICARE, OTHER, SELFPAY | PROVIDERS: PCP Family Medicine; Visit Provider Internal Medicine Pulmonary Disease | DX: J44.1 Chronic obstructive pulmonary disease with (acute) exacerbation (principal); F17.210 Nicotine dependence, cigarettes, uncomplicated; I25.10 Atherosclerotic heart disease of native coronary artery without angina pectoris; R91.1 Solitary pulmonary nodule; Z71.6 Tobacco abuse counseling; Z85.818 Personal history of malignant neoplasm of other sites of lip, oral cavity, and pharynx; Z95.5 Presence of coronary angioplasty implant and graft | CPT/HCPCS: 99214 ==

== ENCOUNTER 2022-08-14 07:25 | Outpatient (CLI) | payer MEDICARE, SELFPAY ==
--- NOTE | 2022-08-14 07:45 | CT_ITS ---
WS: [id number] LDCT LUNG CANCER SCREENING HISTORY: lung screen TECHNIQUE: Axial imaging performed from the apices to 1 cm below the costophrenic angles. Coronal and sagittal reformats are submitted with axial MIP series. All CT scans at [facility] use at least one of these dose optimization techniques: automated exposure control; mA and/or kV adjustment per patient size (includes targeted exams where dose is matched to clinical indication); or iterativ e reconstruction. DLP: 1.9 DIvol: 7.3 mGy-cm. COMPARISON: 12/28/2021 Diagnostic quality: Satisfactory Lungs: Moderate centrilobular emphysema. New irregular shaped groundglass attenuation LEFT upper lobe with a maximum diameter of 3.2 cm. Benign granuloma LEFT lower lobe. No mass. Focal scar LEFT lower lobe. Heart: Normal size heart with no pericardial effusion.. Other findings: No adenopathy. Mild atherosclerosis aorta. Normal size pulmonary artery. Coronary art brent calcification, moderate. No adrenal mass. CT/CT lung screening [id number] IMPRESSION: LUNG-RADS: 3-Probably Benign FOLLOW UP: 6 Month LDCT OTHER FINDINGS (S MODIFIER): None.
== END 2022-08-14 07:26 | disposition home or self-care (01) ==
LOC: RAD 07:28
PROVIDERS: PCP Family Medicine; Visit Provider Internal Medicine Pulmonary Disease
DX: Z12.2 Encounter for screening for malignant neoplasm of respiratory organs (principal); F17.210 Nicotine dependence, cigarettes, uncomplicated; I25.10 Atherosclerotic heart disease of native coronary artery without angina pectoris
CPT/HCPCS: 71271; 99214

== ENCOUNTER → 2022-10-03 14:22 | Outpatient (BNVA) | payer MEDICARE, SELFPAY | PROVIDERS: PCP Family Medicine; Visit Provider Family Medicine | DX: E78.00 Pure hypercholesterolemia, unspecified (principal); J44.9 Chronic obstructive pulmonary disease, unspecified; I25.10 Atherosclerotic heart disease of native coronary artery without angina pectoris; I10 Essential (primary) hypertension; K21.9 Gastro-esophageal reflux disease without esophagitis; E83.52 Hypercalcemia; Z12.5 Encounter for screening for malignant neoplasm of prostate; Z79.899 Other long term (current) drug therapy | CPT/HCPCS: 80053; 80061; 82306; 82607; 82746; 83036; 84439; 84443; 85025 ==

== ENCOUNTER → 2023-04-11 10:24 | Outpatient (BNVA) | payer MEDICARE, OTHER, SELFPAY | PROVIDERS: PCP Family Medicine; Visit Provider Internal Medicine Pulmonary Disease | DX: R91.1 Solitary pulmonary nodule (principal); R06.09 Other forms of dyspnea; F17.200 Nicotine dependence, unspecified, uncomplicated; Z71.6 Tobacco abuse counseling; I25.10 Atherosclerotic heart disease of native coronary artery without angina pectoris; J44.1 Chronic obstructive pulmonary disease with (acute) exacerbation; Z85.818 Personal history of malignant neoplasm of other sites of lip, oral cavity, and pharynx | CPT/HCPCS: 99214 ==

== ENCOUNTER 2023-05-01 15:42 | Outpatient (CLI) | payer MEDICARE, OTHER, SELFPAY ==
--- NOTE | 2023-05-01 16:00 | CTR_ITS ---
PROCEDURE INFORMATION: Exam: CT Chest Without Contrast; Diagnostic Exam date and time: 05/01/2023 3:47 PM Age: 67 years old Clinical indication: Abnormal findings; Abnormal radiologic exam of lung or chest; Patient HX: HX of neck/throat cancer; Additional info: To follow up left lung opacity. TECHNIQUE: Imaging protocol: Diagnostic computed tomography of the chest without contrast. Radiation optimization: All CT scans at this facility use at least one of these dose optimization techniques: automated exposure control; mA and/or kV adjustment per patient size (includes targeted exams where dose is matched to clinical indication); or iterative reconstruction. COMPARISON: CT lung screening [id number] 08/14/2022 7:34 AM RADIATION DOSE METRICS: Total DLP (mGy-cm): 441.76 FINDINGS: Lungs: Focal ground-glass opacity in the left upper lobe visible on chest CT 08/14/2022 has resolved. There is mild subsegmental atelectasis in the inferior lingula. There is a benign calcified granuloma in the left lower lobe. There is right apical subpleural scarring. There is moderate centrilobular emphysema involving the upper and lower lungs. There is minimal chronic scarring in the left lower lobe which is stable. Pleural spaces: There is no pleural effusion or pneumothorax. Heart: Heart size is normal. There is no pericardial effusion. Coronary arteries: There is moderate coronary artery calcification. Lymph nodes: There is no mediastinal or hilar lymphadenopathy. Vasculature: There is mild aortic atherosclerotic disease. Intraperitoneal space: Visible structures in the upper abdomen are unremarkable. Bones/joints: Bones are unremarkable. Soft tissues: The extrathoracic soft tissues are unremarkable. CT/CT chest con [id number] IMPRESSION: 1. Focal ground-glass opacity in the left upper lobe seen on the prior chest CT has resolved suggesting an infectious or inflammatory process. 2. Moderate centrilobular emphysema. COMMENTS: The presence of pulmonary emphysema on CT is an independent risk factor for lung cancer. In the absence of a history or active diagnosis of lung cancer, it is recommended that this patient with emphysema be evaluated for enrollment in a low dose CT lung cancer screening program.
== END 2023-05-01 15:43 | disposition home or self-care (01) ==
LOC: RAD 15:42
PROVIDERS: PCP Family Medicine; Visit Provider Internal Medicine Pulmonary Disease
DX: R91.1 Solitary pulmonary nodule (principal); Z85.819 Personal history of malignant neoplasm of unspecified site of lip, oral cavity, and pharynx; J43.2 Centrilobular emphysema
CPT/HCPCS: 71250

== ENCOUNTER → 2023-10-01 11:20 | Outpatient (BNVA) | payer MEDICARE, OTHER, SELFPAY | PROVIDERS: PCP Family Medicine; Visit Provider Family Medicine | DX: I10 Essential (primary) hypertension (principal); E55.9 Vitamin D deficiency, unspecified; E78.00 Pure hypercholesterolemia, unspecified; R06.09 Other forms of dyspnea; E03.9 Hypothyroidism, unspecified; J44.1 Chronic obstructive pulmonary disease with (acute) exacerbation; Z12.5 Encounter for screening for malignant neoplasm of prostate | CPT/HCPCS: 80053; 80061; 82306; 84439; 84443; 85025; G0103 ==

== ENCOUNTER → 2023-10-30 13:59 | Outpatient (BNVA) | payer MEDICARE, OTHER, SELFPAY | PROVIDERS: PCP Family Medicine; Visit Provider Internal Medicine Cardiovascular Disease | DX: R07.2 Precordial pain (principal); R06.02 Shortness of breath; I10 Essential (primary) hypertension; E11.69 Type 2 diabetes mellitus with other specified complication; E78.5 Hyperlipidemia, unspecified | CPT/HCPCS: 99214 ==

== ENCOUNTER 2023-11-30 08:38 | Outpatient (CLI) | payer MEDICARE, SELFPAY ==
[2023-11-30 08:50] VITALS: BMI 28.7
--- NOTE | 2023-11-30 08:50 | ECG_ITS ---
[facility] Test Date: 2023-11-30 Pat Name: Salvador Becker Department: Room: Gender: Male [employer] Assistant: : 1955 Requested By: Robert Garber Order Number: [id number] Soraida MD: Rubin Carmichael M.D. Interpretive Statements LEXISCAN SESTAMIBI STRESS TEST Procedure: At the baseline, the blood pressure was 122/79mmHg with a heart rate of 68 bpm. The electrocardiogram showed normal sinus rhythm, normal axis with normal ST and T's. The Lexiscan was infused over a period of 20 seconds. A total of 0.4 mg of Lexiscan was infused. The stress phase was continued for a total of 5 minutes. Heart rate was at the end of stress phase was 93 bpm and a blood pressure of 136/75 mmHg. The EKG at the peak infusion revealed normal sinus rhythm with no significant ST-T wave changes. Sestamibi was injected 20 seconds after the Lexiscan infusion. Blood pressure at the end of recovery phase was 114/76 mmHg with a heart rate of 81 bpm. Conclusion: 1. Normal EKG response to Lexiscan infusion 2. No Lexiscan induced chest pain or cardiac arrhythmia. 3. Normal blood pressure and heart rate response. 4. Sestamibi/sestamibi perfusion scan pending; see separate report. Electronically Signed On 12-07-2023 21:13:24 CDT by Rubin Carmichael M.D. [email or web address]
--- NOTE | 2023-11-30 08:51 | NMCV_ITS ---
NM jaret perf SPECT r/s* [id number] Salvador Becker Age: 68 Gender: M : 1955 Exam Date: 11/30/2023 08:51 Ordering Phys: Robert Garber MD ([email or web address]) Technologist: SUSANNA Hernandez Exam Location: [facility] Indications: CP STRESS TEST [facility] IMAGE PROTOCOL Rest/Stress 1 Lexiscan Day Radiopharmaceutical Dose (mCi) Administration Site Administered by Rest: Tc-99m 10.6 IV Nadira Wu VOLUNTEER RECRUITER Sestamibi Stress:Tc-99m 32.6 IV Nadira Wu, VOLUNTEER RECRUITER Sestamibi Rest: 30-Nov-2023 60 Discovery 630 Stress: 30-Nov-2023 30 Discovery 630 0.4mg Lexiscan. Images obtained in supine and prone position. SPECT RESULTS Technical Quality: Good Raw Data Analysis: Normal Image Corrections: No attenuation or motion correction applied Summed Stress Score: 2 Summed Rest Score: 6 Summed Difference Score: 0 PERFUSION FINDINGS Large area of patchy decreased tracer uptake noted in basal to distal anterior and basal to distal inferior wall on both stress and rest images suggestive of old myocardial infarction versus scarring in the absence of wall motion abnormality could be an artifact. FUNCTIONAL RESULTS (calculated via Gated SPECT) Stress Image LV EF (%): 76 Stress EDV (mL):70 TID: 0.93 Stress ESV (mL):17 FUNCTIONAL FINDINGS: There is normal left ventricular systolic function. IMPRESSIONS This study is negative for ischemia Robert Garber MD (Electronically Signed) Final Date: 30 November 2023 20:32 S
[2023-11-30] MEDS: regadenoson 0.4 Mg/5 ml Syringe IVP (10:37)
[2023-11-30 10:50] VITALS: BP 115/64; PULSE 68
== END 2023-11-30 08:39 | disposition home or self-care (01) ==
PROVIDERS: PCP Family Medicine; Visit Provider Internal Medicine Cardiovascular Disease
DX: R07.9 Chest pain, unspecified (principal); R06.02 Shortness of breath
CPT/HCPCS: 36415; 78452; 93017; 96374; A9500; J2785

== ENCOUNTER 2023-12-03 11:41 | Outpatient (CLI) | payer MEDICARE, SELFPAY ==
--- NOTE | 2023-12-03 12:00 | USCV_ITS ---
Salvador Becker Age: 68 Gender: M : 1955 Exam Date: 12/03/2023 11:56 Ordering Phys: Robert Garber MD ([email or web address]) Technologist: CT Exam Location: [facility] – [place] Indication: BP: 134 / 80 HR: 59 Rhythm: Sinus Technical Quality: Adequate MEASUREMENTS (Male / Female) Normal Values 2D ECHO LVOT Diameter 2.1 cm LV Ejection Fraction MOD 4C 63.0 % LV Ejection Fraction MOD 2C 64.3 % LV Ejection Fraction 2C AL 64.1 % LA Diameter 3.4 cm RA Systolic Volume 4C AL 46.0 ml RA Systolic Volume 4C MOD 45.4 ml LA Sys Volume AL 31.4 cm cubed LA Sys Volume Index AL 14.9 cm cubed/m squared Aorta at Sinotubular Diameter 3.1 cm IVC Diameter 2.1 cm M-MODE LA Ao Ratio MM 1.5 AV Cusp Separation MM 1.9 cm DOPPLER AV Peak Velocity 107.0 cm/s LVOT Peak Velocity 77.0 cm/s AV Area Cont Eq vti 3.1 cm squared AV Area Cont Eq pk 2.6 cm squared MV Peak Velocity 73.0 cm/s MV Area PHT 3.8 cm squared Mitral E to A Ratio 1.1 TV Peak Velocity 154.5 cm/s TR Peak Velocity 199.0 cm/s TR Peak Gradient 15.8 mmHg TV Peak E Velocity 69.0 cm/s Right Atrial Pressure 3.0 mmHg Pulmonary Artery Systolic Pressu 18.8 mmHg PV Peak Velocity 101.0 cm/s FINDINGS Left Ventricle Normal left ventricular cavity size. Normal left ventricular wall thickness. Normal left ventricular systolic function. No regional wall motion abnormalities. Left ventricular ejection fraction is estimated at 60 %. Right Ventricle The right ventricle is normal in size and function. Right Atrium The right atrium is normal in size. Left Atrium The left atrium is normal in size. Mitral Valve Structurally normal mitral valve without significant stenosis or prolapse. There is no mitral regurgitation. Aortic Valve Structurally normal aortic valve without significant sclerosis or stenosis. There is no aortic regurgitation. Tricuspid Valve Structurally normal tricuspid valve without significant stenosis or regurgitation. Pulmonary artery systolic pressure is normal. Pulmonic Valve Structurally normal pulmonic valve without significant stenosis. There is no pulmonic regurgitation. Pericardium Normal pericardium without effusion. Aorta Normal ascending aorta dimension. IVC The inferior vena cava appears normal. CONCLUSIONS Normal left ventricular cavity size. Normal left ventricular wall thickness. Normal left ventricular systolic function. No regional wall motion abnormalities. Left ventricular ejection fraction is estimated at 60 %. No significant valve abnormalities. There is no pericardial effusion. Right atrial pressure is around 5 mm of mercury. Robert Garber MD (Electronically Signed) Final Date: 05 December 2023 21:36 S
== END 2023-12-03 11:42 | disposition home or self-care (01) ==
LOC: RAD 11:42
PROVIDERS: PCP Family Medicine; Visit Provider Internal Medicine Cardiovascular Disease
DX: R06.02 Shortness of breath (principal)
CPT/HCPCS: 93306

== ENCOUNTER → 2024-02-19 10:44 | Outpatient (BNVA) | payer MEDICARE, OTHER, SELFPAY | PROVIDERS: PCP Family Medicine; Visit Provider Registered Nurse Neonatal Intensive Care | DX: R50.9 Fever, unspecified (principal); U07.1 COVID-19 | CPT/HCPCS: 87400; 87426 ==

== ENCOUNTER → 2024-04-29 14:45 | Outpatient (BNVA) | payer MEDICARE, OTHER, SELFPAY | PROVIDERS: PCP Family Medicine; Visit Provider Internal Medicine Cardiovascular Disease | DX: I10 Essential (primary) hypertension (principal); I25.10 Atherosclerotic heart disease of native coronary artery without angina pectoris; E78.00 Pure hypercholesterolemia, unspecified; Z86.16 Personal history of COVID-19 | CPT/HCPCS: 99214 ==

== ENCOUNTER 2024-12-22 14:55 | Outpatient (CLI) | payer MEDICARE, OTHER, SELFPAY ==
--- NOTE | 2024-12-22 14:59 | XR_ITS ---
WS: [id number] Exam: XR chest 2V* [id number] Date/Time of Exam: 12/22/2024 2:59 PM Reason For Exam: CENTRILOBULAR EMPHYSEMA/DYSPNEA ON EXERTION Comparison 03/17/2022. Lungs are hyperinflated and clear. Normal cardiomediastinal silhouette and regional bony elements. No pleural effusion. XR/XR chest 2V* [id number] IMPRESSION: 1. Pulmonary hyperinflation. No acute process.
== END 2024-12-22 14:56 | disposition home or self-care (01) ==
LOC: RAD 14:56
PROVIDERS: PCP Family Medicine; Visit Provider Nurse Practitioner Family
DX: R06.09 Other forms of dyspnea (principal); J43.2 Centrilobular emphysema
CPT/HCPCS: 71046

== ENCOUNTER 2024-12-25 07:37 | Outpatient (CLI) | payer MEDICARE, OTHER, SELFPAY ==
--- NOTE | 2024-12-25 07:46 | USCV_ITS ---
Salvador Becker Age: 69 Gender: M : 1955 Exam Date: 12/25/2024 08:06 Ordering Phys: Elsy Ramos Technologist: CLAUDIA [place] [facility] [place]: HTN. Atherosclerosis of the [place] coronary BP: 100 / 60 HR: 62 Rhythm: Sinus Technical Quality: Adequate MEASUREMENTS (Male / Female) Normal Values 2D ECHO LV Diastolic Diameter PLAX 4.6 cm 4.2 - 5.9 / 3.9 - 5.3 cm IVS Diastolic Thickness 0.6 cm 0.6 - 1.0 / 0.6 - 0.9 cm IVS Systolic Thickness 1.0 cm LVPW Diastolic Thickness 1.0 cm 0.6 - 1.0 / 0.6 - 0.9 cm LVPW Systolic Thickness 1.0 cm LVOT Diameter 2.1 cm LV Ejection Fraction 2D Teich 10.6 % LV Ejection Fraction MOD 4C 54.4 % LV Ejection Fraction MOD 2C 55.5 % LV Ejection Fraction 2C AL 54.4 % LA Diameter 2.3 cm RA Systolic Volume 4C AL 42.4 ml RA Systolic Volume 4C MOD 41.1 ml LA Sys Volume AL 30.0 cm cubed LA Sys Volume Index AL 13.9 cm cubed/m squared Aorta at Sinotubular Diameter 2.6 cm IVC Diameter 1.9 cm M-MODE LA Ao Ratio MM 1.3 AV Cusp Separation MM 2.0 cm DOPPLER AV Peak Velocity 100.0 cm/s LVOT Peak Velocity 84.0 cm/s AV Area Cont Eq vti 3.0 cm squared AV Area Cont Eq pk 2.9 cm squared MV Peak Velocity 71.0 cm/s MV Area PHT 4.4 cm squared Mitral E to A Ratio 0.7 TR Peak Velocity 101.0 cm/s TR Peak Gradient 4.1 mmHg TV Peak E Velocity 59.0 cm/s PV Peak Velocity 85.0 cm/s FINDINGS Left Ventricle Normal left ventricular size, systolic function and wall thickness, with no regional wall motion abnormalities. Left ventricular ejection fraction is estimated at 60 %. Abnormal septal motion consistent with pacemaker. Grade I/IV diastolic dysfunction (abnormal relaxation filling pattern), normal to mildly elevated filling pressures. Right Ventricle Normal right ventricular size and systolic function. Right Atrium Normal right atrial size. Left Atrium Normal left atrial size. IA Septum Normal appearance of the interatrial septum. Mitral Valve Mildly thickened mitral valve. No mitral valve stenosis. Trace mitral valve regurgitation. Aortic Valve Moderate aortic valve calcification. No aortic valve stenosis. No aortic valve regurgitation. Tricuspid Valve Normal tricuspid valve structure. No tricuspid valve stenosis or regurgitation. Normal pulmonary pressure. Pulmonic Valve Normal pulmonic valve structure. No pulmonic valve stenosis or regurgitation. Pericardium No pericardial effusion. Aorta Normal diameter of the aortic root and ascending thoracic aorta. IVC Normal IVC diameter. CONCLUSIONS Normal left ventricular size, systolic function and wall thickness, with no regional wall motion abnormalities. Left ventricular ejection fraction is estimated at 60 %. Abnormal septal motion consistent with pacemaker. Grade I/IV diastolic dysfunction (abnormal relaxation filling pattern), normal to mildly elevated filling pressures. No significant valvular abnormalities. There is no pericardial effusion. Right atrial pressure is around 5 mm of mercury. Robert Garber MD (Electronically Signed) Final Date: 30 December 2024 19:11 S
== END 2024-12-25 07:38 | disposition home or self-care (01) ==
LOC: RAD 07:41
PROVIDERS: PCP Family Medicine; Visit Provider Nurse Practitioner Family
DX: R06.09 Other forms of dyspnea (principal); I21.02 ST elevation (STEMI) myocardial infarction involving left anterior descending coronary artery; Z95.5 Presence of coronary angioplasty implant and graft; I10 Essential (primary) hypertension; I25.10 Atherosclerotic heart disease of native coronary artery without angina pectoris; Z95.0 Presence of cardiac pacemaker
CPT/HCPCS: 93306

== ENCOUNTER → 2025-01-06 07:52 | Outpatient (BNVA) | payer MEDICARE, OTHER, SELFPAY | PROVIDERS: PCP Family Medicine; Visit Provider Nurse Practitioner Family | DX: L73.8 Other specified follicular disorders (principal); L90.5 Scar conditions and fibrosis of skin; L57.8 Other skin changes due to chronic exposure to nonionizing radiation; L81.4 Other melanin hyperpigmentation; D48.5 Neoplasm of uncertain behavior of skin | CPT/HCPCS: 11102; 99203 ==

== ENCOUNTER → 2025-02-09 14:16 | Outpatient (BNVA) | payer MEDICARE, OTHER, SELFPAY | PROVIDERS: PCP Family Medicine; Visit Provider Nurse Practitioner Family | DX: L01.01 Non-bullous impetigo (principal); S01.00XA Unspecified open wound of scalp, initial encounter; X58.XXXA Exposure to other specified factors, initial encounter | CPT/HCPCS: 97597; 99214 ==